=== PATIENT | male | born 1970 | race Caucasian/White ===

== ENCOUNTER 2018-11-20 07:51 | Inpatient (IN) | payer MEDICAID, OTHER ==
[~2018-11-20] VITALS: Ht 160 cm; Wt 58.8 kg
[2018-11-20] VITALS (8 sets, daily range): BP systolic 74–125; BP diastolic 42–75; PULSE 75–95; RESP 15–29; Ht 160 cm; Wt 58.8 kg
[2018-11-20] MEDS ORDERED: SOD CHLORIDE 0.9% 750 ML IV ONE (10:00)
[2018-11-20] MEDS ORDERED: LOPE2CAP PO (10:57)
[2018-11-20] MEDS ORDERED: LANT3I SC (10:58)
[2018-11-20] MEDS ORDERED: INSU100V3 IJ (11:00)
[2018-11-20] MEDS ORDERED: SODIUM CHLORIDE 0.9% 1L BAG IV* STA (11:20)
[2018-11-20] MEDS ORDERED: CEFTRIAXONE 1 GM/50 ML (PMX) 50 ML IVPB STA (11:20)
[2018-11-20] MEDS ORDERED: INSULIN REGULAR, HUMAN 100 UNIT/1 ML 3ML VIAL SC ONE ×2 (11:30→17:00)
[2018-11-20] MEDS ORDERED: NACL 0.9% 3 ML SYG IV SCH (13:00)
[2018-11-20] MEDS ORDERED: ONDANSETRON 4 MG INJ IV PRN (13:00)
[2018-11-20] MEDS: SOD CHLORIDE 0.9% 1,000 ML IV SCH ×3 (13:15→21:58)
--- NOTE | 2018-11-20 14:09 | ERD ---
ER Documentation Chief Complaint Chief Complaint HYPERGLYCEMIA, LEG PAINS, HEADACHE SINCE YESTERDAY HPI Is a 48-year-old male with a history of uncontrolled diabetes who presents with generalized malaise, generalized body aches since yesterday. Patient denies fever, he denies chest pain or shortness of breath he states he has been compliant with his medications, is not sure why his blood sugar got so out of control. He has no recent hospitalizations. ROS All systems reviewed and are negative except as per history of present illness. Medications Home Meds Reported Medications Insulin Regular, Human (Humulin R) 100 Unit/1 Ml Vial, 0 IJ TIDM A for SLIDING SCALE, VIAL INJECT 15 UNITS-QAM, 10 UNITS-NOON, 10 UNITS-QPM 11/20/18 Insulin Glargine* (Lantus*) 100 Unit/Ml Soln, 35 UNIT SC QHS, #1 VIAL 11/20/18 Loperamide Hcl* (Imodium*) 2 Mg Capsule, 2 MG PO BID PRN for DIARRHEA, CAP MAX 16 mg/day 11/20/18 Allergies Allergies: Coded Allergies: No Known Allergy (Unverified , 11/20/18) PMhx/Soc Hx Miscellaneous Medical Probl: Yes (DM. ) Hx Alcohol Use: Yes Hx Substance Use: No Hx Tobacco Use: No Smoking Status: Never smoker Physical Exam Vitals Vital Signs Date Temp Pulse Resp B/P (MAP) Pulse Ox O2 O2 Flow FiO2 Time Delivery Rate 11/20/18 98.3 83 16 135/55 99 Room Air 13:49 (81) 11/20/18 98.3 89 18 151/68 99 07:52 (95) Physical Exam Const: Generally chronically ill-appearing male Head: Atraumatic Eyes: Normal Conjunctiva ENT: Normal External Ears, Nose and Mouth. Neck: Full range of motion. No meningismus. Resp: Clear to auscultation bilaterally, no wheezes rales rhonchi Cardio: Regular rate and rhythm, no murmurs Abd: Soft, non tender, non distended. Normal bowel sounds Skin: No petechiae or rashes Back: No midline or flank tenderness Ext: No cyanosis, or edema. There is no erythema. There is superficial skin tear is noted over the left foot Neur: Awake and alert Psych: Normal Mood and Affect Result Diagram: 11/20/18 1015 11/20/18 1015 Results 24 hrs Laboratory Tests Test 11/20/18 09:53 11/20/18 10:15 11/20/18 10:39 11/20/18 10:43 Blood Gas Blood venous Specimen Source Arterial Blood 11/20/2018 10:12: Date Drawn 10 AM Arterial Blood OTHER Gas Puncture Site Norberto Test N/A Venous Blood pH 7.283 Venous Blood 40.3 mmHG pCO2 (Temp Corrected) Venous Blood pO2 37.0 mmHG (Temp Corrected) Venous Blood 18.6 mmol/L HCO3 Venous Blood 71.1 mmHG Oxygen Saturation Venous Blood -7.5 mmol/L Base Excess Venous Blood 11.1 g/dl Total Hemoglobin Venous Blood 70.7 % Oxyhemoglobin Venous Blood 0.4 % Methemoglobin Blood Gas A-a O2 64.5 mmHg Differential Carboxyhemoglobi 0.1 % n Blood Gas 37.0 C Temperature Blood Gas ROOM AIR Modality FiO2 21.0 % Blood Gas SHERYL Cai Critical Value Read Back Blood Gas [facility] Notified Whom Blood Gas 11/20/2018 10:15: Notified Time 52 AM White Blood 23.0 10^3/ul Count Red Blood Count 3.36 10^6/ul Hemoglobin 9.8 g/dl Hematocrit 27.4 % Mean Corpuscular 81.5 fl Volume Mean Corpuscular 29.2 pg Hemoglobin Mean Corpuscular 35.8 g/dl Hemoglobin Rajni nt Red Cell 12.5 % Distribution Width Platelet Count 266 10^3/UL Mean Platelet 9.8 fl Volume Immature 0.700 % Granulocytes % Neutrophils % 88.8 % Segmented 69 % Neutrophils % (Manual) Band Neutrophils 20 % % (Manual) Lymphocytes % 4.4 % Lymphocytes % 5 % (Manual) Monocytes % 5.8 % Monocytes % 6 % (Manual) Eosinophils % 0.0 % Basophils % 0.3 % Nucleated Red 0.0 /100WBC Blood Cells % Immature 0.160 10^3/ul Granulocytes # Neutrophils # 20.5 10^3/ul Neutrophils # 16.9 10^3/ul (Manual) Band Neutrophils 4.6 10^3/ul # Lymphocytes 1.1 10^3/ul (Manual) Lymphocytes # 1.0 10^3/ul Monocytes # 1.3 10^3/ul Monocytes # 1.3 10^3/ul (Manual) Eosinophils # 0.0 10^3/ul Basophils # 0.1 10^3/ul Nucleated Red 0.0 10^3/ul Blood Cells # Platelet NORMAL Estimate Polychromasia 1+ Poikilocytosis 1+ Anisocytosis 1+ Sodium Level 118 mmol/L Potassium Level 4.3 mmol/L Chloride Level 79 mmol/L Carbon Dioxide 18 mmol/L Level Anion Gap 21 Blood Urea 64 mg/dl Nitrogen Creatinine 3.59 mg/dl Est Glomerular 17 mL/min Filtrat Rate mL/min Glucose Level 666 mg/dl Calcium Level 8.2 mg/dl Phosphorus Level 5.3 mg/dl Magnesium Level 2.4 mg/dl Troponin I < 0.012 ng/ml Albumin 3.5 g/dl Bedside Glucose > 595 mg/dL Urine Color YELLOW Urine Clarity SLIGHTLY CLOUDY Urine pH 5.0 Urine Specific 1.014 [place] Urine Ketones NEGATIVE mg/dL Urine Nitrite NEGATIVE mg/dL Urine Bilirubin NEGATIVE mg/dL Urine NEGATIVE mg/dL Urobilinogen Urine Leukocyte TRACE Jazmyn/ul Esterase Urine 10 /HPF Microscopic RBC Urine 31 /HPF Microscopic WBC Urine Bacteria FEW /HPF Urine Yeast FEW /HPF (Budding) Urine Hemoglobin 3+ mg/dL Urine Glucose 3+ mg/dL Urine Total NEGATIVE mg/dl Protein Test 11/20/18 11:46 11/20/18 11:59 POC Venous 1.4 mmol/L Lactate Bedside Glucose > 595 mg/dL Current Medications Medications Dose Sig/Karey Start Time Status Last (Trade) Ordered Route PRN Stop Time Admin Dose Reason Admin Sodium 750 ml @ ONCE ONCE 11/20/18 DC 11/20/18 Chloride 1,000 mls/hr IV 10:00 11/20/18 10:24 10:44 Sodium 1,500 ml BOLUS OVER 2 11/20/18 DC 11/20/18 Chloride HOURS STAT 11:20 11/20/18 12:03 (NS) IV* 11:27 Ceftriaxone 50 ml @ ONCE STAT 11/20/18 DC 11/20/18 Sodium 100 mls/hr IVPB 11:20 11/20/18 12:05 11:49 Insulin 10 unit ONCE ONCE 11/20/18 DC 11/20/18 Human SC 11:30 11/20/18 12:03 Regular 11:31 (Humulin R) Insulin 35 units QHS SC 11/20/18 UNV Glargine 21:00 (Lantus) Sodium 1,000 ml @ Q10H IV 3/8/19 3/8/19 Chloride 100 mls/hr 12:52 13:15 IV Flush 3 ml PER 11/20/18 (NS 3 ml) PROTOCOL IV 13:00 Ondansetron 4 mg Q6H PRN 11/20/18 HCl (Zofran IV 13:00 Inj) NAUSEA/VOMITI NG 650 mg Q6H PRN 11/20/18 Acetaminophen PO .PAIN 1-3 13:00 (Tylenol OR TEMP Tab) Famotidine 20 mg DAILY PO 11/20/18 (Pepcid) 14:00 Heparin 5,000 unit Q12 SC 11/20/18 Sodium 21:00 (Porcine) (Heparin (5000 Units/1ml)) Cefepime HCl 50 ml @ Q24H IV 11/20/18 100 mls/hr 21:00 Procedures/MDM 48-year-old male presents for generalized malaise and hyperglycemia. His labs are notable for a blood glucose in the 600s, sodium was also 117, corrected this is in the range of 124 and 125. He has no neurologic deficits, there is no indication for hypertonic saline at this time, he has notable leukocytosis of 20, thus CT abdomen pelvis and CT brain were ordered to evaluate for occult infection, this was negative. He had pyuria, and his CT also showed signs concerning for pyelonephritis, thus he was treated with ceftriaxone, and covered empirically for sepsis, I do not feel that the patient is in severe sepsis or septic shock.. Patient will be admitted to telemetry under Dr. Uriostegui EKG: Rate/Rhythm: Normal Sinus Rhythm QRS, ST, T-waves: No changes consistent w/ acute ischemia Impression: No evidence of ischemia or arrhythmia Departure Diagnosis: Primary Impression: Multiple complaints Additional Impressions: Diabetes Diabetes mellitus type: type 2 Diabetes mellitus predatory animal exterminator insulin use: unspecified senior living insulin use status Diabetes mellitus complication status: with unspecified complications Qualified Codes: E11.8 - Type 2 diabetes mellitus with unspecified complications Hyperglycemia Generalized weakness Pyelonephritis Condition: Stable YOJANA SAUCEDO MD Nov 20, 2018 14:09
[2018-11-20] MEDS: FAMOTIDINE 20 MG TAB PO SCH (14:34)
--- NOTE | 2018-11-20 16:13 | HP ---
Date/Time of Note Date/Time of Note DATE: 11/20/18 TIME: 15:59 Assessment/Plan VTE Prophylaxis SCD applied (from Nsg): Yes Pharmacological prophylaxis: LMWH Lines/Catheters IV Catheter Type (from Nrsg): Saline Lock Assessment/Plan Assessment/Plan 1. SIRS secondary to UTI - UA results noted and will start on IV antibiotics - UCx sent - elevated WBC noted - IVF on board 2. LUZ on ?CKD - CT scan of abdomen/pelvis results noted and appears to be a postobstructive cause for LUZ - Will place nagel and consult Urology. If no improvement in renal function, will consult Nephrology for further recommendations 3. Right hydronephrosis with ureter abnl - Most likely contributing to LUZ - Urology consultation placed for further recommendations - Nagel placement ordered 4. Diabetes Mellitus with hyperglycemia - will hydrate and continue on Lantus - Check A1c - ISS and accuchecks 5. hyponatremia - corrected is 123 - most likely secondary to hypovolemia given has not been able to eat in 3 days - continue monitoring 6. Nausea with vomiting - most likely viral gastroenteritis - supportive treatment 7. Chronic diarrhea - will check stool studies - if no acute issues, will resume loperamide 8. Anemia - will check iron levels 9. Diet - carb controlled 10. GI ppx - PPI 11. Disposition - Admit to telemetry for treatment of sepsis secondary to UTI, hyperglycemia, LUZ, and workup Result Diagram: 11/20/18 1015 11/20/18 1015 Results 24hrs Laboratory Tests Test 11/20/18 09:53 11/20/18 10:15 11/20/18 10:39 11/20/18 10:43 Blood Gas Blood venous Specimen Source Arterial Blood 11/20/2018 10:12:1 Date Drawn 0 AM Arterial Blood OTHER Gas Puncture Site Norberto Test N/A Venous Blood pH 7.283 L Venous Blood 40.3 pCO2 (Temp Corrected) Venous Blood pO2 37.0 H (Temp Corrected) Venous Blood 18.6 L HCO3 Venous Blood 71.1 Oxygen Saturation Venous Blood -7.5 L Base Excess Venous Blood 11.1 Total Hemoglobin Venous Blood 70.7 Oxyhemoglobin Venous Blood 0.4 Methemoglobin Blood Gas A-a O2 64.5 Differential Carboxyhemoglobi 0.1 n Blood Gas 37.0 Temperature Blood Gas ROOM AIR Modality FiO2 21.0 Blood Gas SHERYL Cai Critical Value Read Back Blood Gas mda Notified Whom Blood Gas 11/20/2018 10:15:5 Notified Time 2 AM White Blood 23.0 H Count Red Blood Count 3.36 L Hemoglobin 9.8 L Hematocrit 27.4 L Mean Corpuscular 81.5 L Volume Mean Corpuscular 29.2 Hemoglobin Mean Corpuscular 35.8 Hemoglobin Rajni nt Red Cell 12.5 Distribution Width Platelet Count 266 Mean Platelet 9.8 Volume Immature 0.700 H Granulocytes % Neutrophils % 88.8 H Segmented 69 Neutrophils % (Manual) Band Neutrophils 20 H % (Manual) Lymphocytes % 4.4 L Lymphocytes % 5 L (Manual) Monocytes % 5.8 Monocytes % 6 (Manual) Eosinophils % 0.0 Basophils % 0.3 Nucleated Red 0.0 Blood Cells % Immature 0.160 H Granulocytes # Neutrophils # 20.5 H Neutrophils # 16.9 H (Manual) Band Neutrophils 4.6 H # Lymphocytes 1.1 (Manual) Lymphocytes # 1.0 Monocytes # 1.3 H Monocytes # 1.3 H (Manual) Eosinophils # 0.0 Basophils # 0.1 Nucleated Red 0.0 Blood Cells # Platelet NORMAL Estimate Polychromasia 1+ Poikilocytosis 1+ Anisocytosis 1+ Sodium Level 118 *L Potassium Level 4.3 Chloride Level 79 L Carbon Dioxide 18 L Level Anion Gap 21 H Blood Urea 64 H Nitrogen Creatinine 3.59 H Est Glomerular 17 L Filtrat Rate mL/min Glucose Level 666 *H Calcium Level 8.2 L Phosphorus Level 5.3 H Magnesium Level 2.4 Troponin I < 0.012 Albumin 3.5 Bedside Glucose > 595 *H Urine Color YELLOW Urine Clarity SLIGHTLY CLOUDY A Urine pH 5.0 Urine Specific 1.014 [place] Urine Ketones NEGATIVE Urine Nitrite NEGATIVE Urine Bilirubin NEGATIVE Urine NEGATIVE Urobilinogen Urine Leukocyte TRACE A Esterase Urine 10 H Microscopic RBC Urine 31 H Microscopic WBC Urine Bacteria FEW A Urine Yeast FEW A (Budding) Urine Hemoglobin 3+ H Urine Glucose 3+ H Urine Total NEGATIVE Protein Test 11/20/18 11:46 11/20/18 11:59 11/20/18 14:08 POC Venous 1.4 Lactate Bedside Glucose > 595 *H 519 *H HPI/ROS Admit Date/Time Admit Date/Time 11/20/18 1200 Hx of Present Illness 48 yo M with PMH DM and cataracts presented to ED complaining of generalized weakness of lower extremities since yesterday and nausea with vomiting for the past 3 days. Patient states he has been experiencing vomiting with PO intake and denies eating outside food, sick contact, or recent travel. patient denies family members having the same symptoms. He has been taking his Lantus daily despite not having good PO intake and concerned about elevated sugars. Patient also admits to urinary discomfort with burning and poor flow as well as urgency. He has been experiencing diarrhea for the past 6 years with any PO intake with relief when takes Loperamide. Patient was found with elevated glucose in ED in the 600s and UA was positive for UTI. Patient denies any chest pain, shortness of breath, nausea, LOC, dizziness, constipation, or abdominal pain. ROS All 12 systems reviewed and pertinent positives as per HPI. All others negative. Constitutional: fatigue; No chills, No nausea Eyes: No discharge Respiratory: No cough, No shortness of breath, No sputum, No wheezing Cardiovascular: No chest pain, No lightheadedness, No palpitations Gastrointestinal: diarrhea, vomiting; No pain, No constipation, No nausea Genitourinary: dysuria; No discharge Musculoskeletal: other (LE weakness) Skin: No bruising, No laceration Neurologic: No confusion, No focal-weakness, No syncope Endocrine: no complaints Lymphatic: no complaints Psychological: nl mood/affect Immunologic: no complaints PMH/Family/Social Past Medical History Medical History: diabetes, other (cataracts) Medications Current Medications Insulin Glargine (Lantus) 35 units QHS SC ; Start 11/20/18 at 21:00; Status UNV Sodium Chloride 1,000 ml @ 100 mls/hr Q10H IV Last administered on 11/20/18at 13:15; Admin Dose 100 MLS/HR; Start 11/20/18 at 12:52 IV Flush (NS 3 ml) 3 ml PER PROTOCOL IV ; Start 11/20/18 at 13:00 Ondansetron HCl (Zofran Inj) 4 mg Q6H PRN IV NAUSEA/VOMITING; Start 11/20/18 at 13:00 Acetaminophen (Tylenol Tab) 650 mg Q6H PRN PO .PAIN 1-3 OR TEMP; Start 11/20/18 at 13:00 Famotidine (Pepcid) 20 mg DAILY PO Last administered on 11/20/18at 14:34; Admin Dose 20 MG; Start 11/20/18 at 14:00 Heparin Sodium (Porcine) (Heparin (5000 Units/1ml)) 5,000 unit Q12 SC ; Start 11/20/18 at 21:00 Cefepime HCl 50 ml @ 100 mls/hr Q24H IV ; Start 11/20/18 at 21:00 Coded Allergies: No Known Allergy (Unverified , 11/20/18) Past Surgical History Past Surgical Hx: other (skin graft to RLE) Family History Significant Family History: diabetes, hypertension Social History Alcohol Use: none Smoking Status: Never smoker Drug Use: none Exam/Review of Systems Vital Signs Vitals Vital Signs Date Temp Pulse Resp B/P (MAP) Pulse Ox O2 O2 Flow FiO2 Time Delivery Rate 11/20/18 88 17 103/39 100 Room Air 15:47 (60) 11/20/18 98.3 13:49 Exam Exam General: Patient is laying in bed and answers questions. fatigued, no acute distress Head: Normocephalic atraumatic Eyes: EOMI, cataract appreciate in L eye Neck: Supple, nontender, midline Chest: nontender Respiratory: Clear to auscultation bilaterally. no wheezing or rhonchi Cardiovascular: S1, S2, regular rate and rhythm, no obvious murmurs Gastrointestinal: soft, nontender to palpation, nondistended, bowel sounds heard. no rebound or guarding Neurological: Moves all extremities spontaneously. no focal deficits. motor and sensory intact Skin: No new skin lesions Lymph: No nl lymph nodes, No enlarged, No nontender, No other Additional Comments Home medications reviewed PROCEDURE: XR Chest. CLINICAL INDICATION: chest pain TECHNIQUE: Single frontal view of the chest was obtained COMPARISON: None FINDINGS: The heart and mediastinum are within normal limits. The lungs are clear. There is no pleural effusion or pneumothorax. RPTAT: AA IMPRESSION: No acute disease. .Garland March MD, MD Date Time Electronically viewed and signed by .Garland March MD, on 11/20/2018 11:52 PROCEDURE: CT Brain without contrast. CLINICAL INDICATION: Possible sepsis. TECHNIQUE: A CT of the brain without contrast was performed utilizing axial sections from the skull base through the vertex. One or more the following does reduction techniques were utilized: Automated exposure control, adjustment of the mA/ or kV according to patient's size, or use of iterative reconstruction technique. Total exam CTDIvol is 39 MGy and DLP is 634 mGy-cm. DICOM images are available. COMPARISON: None available FINDINGS: The ventricles and sulci are age-appropriate. There is no intracranial hemorrhage, mass effect or midline shift. No abnormal intra-axial or extra- axial fluid collections are seen. The danielle/white matter differentiation is preserved. No acute skull abnormality is noted. The visualized paranasal sinuses are essentially clear. IMPRESSION: 1. No acute intracranial hemorrhage, transcortical infarction or mass effect. Please note MRI with contrast is more sensitive for detection of intracranial infection and can be obtained as clinically warranted. RPTAT: HH .Simin Syed MD, MD Date Time Electronically viewed and signed by .Simin Syed MD, on 11/20/2018 12:51 PROCEDURE: CT Abdomen and Pelvis without contrast. CLINICAL INDICATION: Possible sepsis TECHNIQUE: CT scan of the abdomen and pelvis without contrast was performed on a multi-detector high-resolution CT scanner. The patient was scanned without IV contrast. Coronal and sagittal reformatted images were obtained from the axial source images. DICOM images are available. CTDI equals 6.18 mGy, and DLP equals 357.68 mGy-cm. One or more of the following dose reduction techniques were used: - Automated exposure control. - Adjustment of the mA and/or kV according to patient size. - Use of iterative reconstruction technique. COMPARISON: None. FINDINGS: Lower thorax: Normal. Liver: No suspicious focal mass in this noncontrast study. Biliary: Decompressed and unremarkable. No biliary dilatation. Pancreas: Normal. Spleen: Normal. Adrenal Glands: Normal. Genitourinary: There is mild cortical atrophy of the right kidney. There is moderate hydronephrosis of the right collecting system. There is abnormal course of the urinary tract . The urinary tract turns superiorly at the 1/3 of the proximal ureter for a short length and continues its course inferiorly to the bl adder. The left kidney appears unremarkable. There is significant distension of the bladder without wall thickening or suspicious mass. There is mild right greater than left ureteral distension. Gastrointestinal: Stomach is decompressed. Small and large bowel with normal caliber. Moderate amount of stool is seen within the rectosigmoid colon. No evidence of obstruction. Normal appendix. Lymph nodes: Normal. Vascular: Normal-caliber of the mildly calcified abdominal aorta. Peritoneum/mesentery: No ascites or free air. Reproductive organs: Normal. Musculoskeletal: No suspicious osseous lesion. Abdominal wall: Normal IMPRESSION: 1. Significantly enlarged bladder with no suspicious mass or wall thickening. Bladder outlet obstruction and neurogenic bladder in the differential diagnosis. 2. Moderate right-sided hydronephrosis with mild cortical atrophy suggestive of chronic nature of the hydronephrosis. There is abnormal course of the proximal right ureter with sharp superior turn. There is mild to moderate diffuse right greater than left ureteral dilation. 3. There is no intra-abdominal fluid collection. RPTAT: PP Physician Janae Date Time Electronically viewed and signed by Physician Janae on 11/20/2018 13:19 CÉSAR HYMAN MD Nov 20, 2018 16:09
[2018-11-20] MEDS ORDERED: DEXTROSE 50% 50 ML SYRINGE IV PRN ×2 (18:00)
[2018-11-20] MEDS ORDERED: GLUCOSE GEL 15 GRAM TUBE BUCCAL PRN (18:00)
[2018-11-20] MEDS ORDERED: GLUCOSE GEL 15 GRAM TUBE PO PRN ×2 (18:00)
[2018-11-20] MEDS ORDERED: GLUCAGON 1 MG INJ IM PRN (18:00)
[2018-11-20] MEDS ORDERED: PENDING SANTYL ORDER FOR WOUND CARE XX PRN (18:30)
[2018-11-20] MEDS: ACETAMINOPHEN 325 MG TAB PO PRN (18:37)
[2018-11-20] MEDS: INSULIN ASPART [NOVOLOG] 3 ML PEN SC SCH ×2 (18:42→22:09)
--- NOTE | 2018-11-20 19:55 | CONS ---
Assessment/Plan Assessment/Plan Hospital Course (Demo Recall) 48-year-old male with past medical history of diabetes mellitus for the past 12 years and cataracts presented to ED complaining of generalized weakness of lower extremities since November 19, 2018. He also had nausea and vomiting for the past 3 days. Patient states he has been experiencing vomiting with PO intake and denies eating outside food, sick contact, or recent travel. patient denies family members having the same symptoms. He has been taking his Lantus daily despite not having good PO intake and concerned about elevated sugars. Patient has been having urinary incontinence for over one year. He wets the bed at night and during the day he does have urinary frequency urgency and urgency incontinence. He has been using diapers for over one year. He has been exp eriencing diarrhea for the past 6 years with any PO intake with relief when takes Loperamide. Patient was found with elevated glucose in ED in the 600s and UA was positive for UTI. He underwent a CT scan of the abdomen and pelvis and that showed a very distended urinary bladder with a hydronephrosis and tortuous ureters. The patient does have chronic urinary retention and overflow incontinence. That is why he has been wetting the bed at night for 1 year and also having urinary frequency urgency and urgency incontinence during the day. His prostate is not large and is not the cause for his retention. He most likely has neurogenic diabetic bladder causing his urinary retention and the hydronephrosis is secondary to the urinary retention. He should have the Ling catheter and he should be taught to do self intermittent catheterization. If that could be arranged for him then once his renal function is normal from a urological standpoint he could be discharged either with a Ling catheter or doing self- catheterization. And he should follow-up with [facility] as he has [facility] only for emergency . Consultation Date/Type/Reason Admit Date/Time 11/20/18 1200 Date of Consultation: Nov 20, 2018 Type of Consult Urology Reason for Consultation Urinary retention and hydronephrosis. Requesting Provider: CÉSAR HYMAN MD Date/Time of Note DATE: 11/20/18 TIME: 19:42 Hx of Present Illness 48-year-old male with past medical history of diabetes mellitus for the past 12 years and cataracts presented to ED complaining of generalized weakness of lower extremities since November 19, 2018. He also had nausea and vomiting for the past 3 days. Patient states he has been experiencing vomiting with PO intake and denies eating outside food, sick contact, or recent travel. patient denies family members having the same symptoms. He has been taking his Lantus daily despite not having good PO intake and concerned about elevated sugars. Patient has been having urinary incontinence for over one year. He wets the bed at night and during the day he does have urinary frequency urgency and urgency incontinence. He has been using diapers for over one year. He has been experiencing diarrhea for the past 6 years with any PO intake with relief when takes Loperamide. Patient was found with elevated glucose in ED in the 600s and UA was positive for UTI. He underwent a CT scan of the abdomen and pelvis and that showed a very distended urinary bladder with a hydronephrosis and tortuous ureters. Constitutional: other (Weakness of lower extremities) Eyes: other (He cannot see in the left eye because of cataract) ENT: no complaints Respiratory: No shortness of breath Cardiovascular: no complaints Gastrointestinal: nausea, vomiting Genitourinary: other (Urinary incontinence.) Musculoskeletal: other (Weakness of both lower extremities) Neurologic: focal-weakness (Lower extremities) Endocrine: other (Diabetes) Lymphatic: no complaints Psychological: no complaints Past Medical History Medical History: diabetes, other (cataracts, urinary incontinence and diarrhea) Home Meds Reported Medications Insulin Regular, Human (Humulin R) 100 Unit/1 Ml Vial, 0 IJ TIDM A for SLIDING S KULWANT, VIAL INJECT 15 UNITS-QAM, 10 UNITS-NOON, 10 UNITS-QPM 11/20/18 Insulin Glargine* (Lantus*) 100 Unit/Ml Soln, 35 UNIT SC QHS, #1 VIAL 11/20/18 Loperamide Hcl* (Imodium*) 2 Mg Capsule, 2 MG PO BID PRN for DIARRHEA, CAP MAX 16 mg/day 11/20/18 Medications Current Medications Insulin Glargine (Lantus) 35 units QHS SC ; Start 11/20/18 at 21:00 Sodium Chloride 1,000 ml @ 100 mls/hr Q10H IV Last administered on 11/20/18at 18:18; Admin Dose 100 MLS/HR; Start 11/20/18 at 12:52 IV Flush (NS 3 ml) 3 ml PER PROTOCOL IV ; Start 11/20/18 at 13:00 Ondansetron HCl (Zofran Inj) 4 mg Q6H PRN IV NAUSEA/VOMITING; Start 11/20/18 at 13:00 Acetaminophen (Tylenol Tab) 650 mg Q6H PRN PO .PAIN 1-3 OR TEMP Last administered on 11/20/18at 18:37; Admin Dose 650 MG; Start 11/20/18 at 13:00 Famotidine (Pepcid) 20 mg DAILY PO Last administered on 11/20/18at 14:34; Admin Dose 20 MG; Start 11/20/18 at 14:00 Heparin Sodium (Porcine) (Heparin (5000 Units/1ml)) 5,000 unit Q12 SC ; Start 11/20/18 at 21:00 Cefepime HCl 50 ml @ 100 mls/hr Q24H IV ; Start 11/20/18 at 21:00 Insulin Aspart (Novolog Insulin Pen) NOVOLOG *MILD* ALGORITHM WITH MEALS BEDTIME SC Last administered on 11/20/18at 18:42; Admin Dose 7 UNIT; Start 11/20/18 at 18:30 Miscellaneous Information 1 ea NOTE XX ; Start 11/20/18 at 18:00 Glucose (Glutose) 15 gm Q15M PRN PO DECREASED GLUCOSE; Start 11/20/18 at 18:00 Glucose (Glutose) 22.5 gm Q15M PRN PO DECREASED GLUCOSE; Start 11/20/18 at 18:00 Dextrose (D50w Syringe) 25 ml Q15M PRN IV DECREASED GLUCOSE; Start 11/20/18 at 1 8:00 Dextrose (D50w Syringe) 50 ml Q15M PRN IV DECREASED GLUCOSE; Start 11/20/18 at 18:00 Glucagon (Glucagen) 1 mg Q15M PRN IM DECREASED GLUCOSE; Start 11/20/18 at 18:00 Glucose (Glutose) 15 gm Q15M PRN BUCCAL DECREASED GLUCOSE; Start 11/20/18 at 18:00 Miscellaneous Information (Pending [facility] Order For Wound Care) This patient khan... PRN PRN XX WOUND CARE; Start 11/20/18 at 18:30 Allergies: Coded Allergies: No Known Allergy (Unverified , 11/20/18) Past Surgical History Past Surgical Hx: other (skin graft to RLE) Social History Alcohol Use: none Smoking Status: Never smoker Drug Use: none Other Social History He has 4 children and has not worked for 1 year Exam/Review of Systems Exam Vitals Vital Signs Date Temp Pulse Resp B/P (MAP) Pulse Ox O2 O2 Flow FiO2 Time Delivery Rate 11/20/18 101.0 18:37 11/20/18 95 18 125/56 97 Room Air 17:57 (79) Constitutional: alert, oriented Psych: no complaints Head: normocephalic Eyes: other (Cannot see in the left eye because of cataract) ENMT: nl external ears & nose Neck: supple, non-tender Respiratory: normal air movement; No wheezing Cardiovascular: No jugular venous distention (JVD) Gastrointestinal: soft Genitourinary - Male: other (Patient has balanitis and phimosis, both testes are in the scrotum. Rectal exam: Prostate is soft and not large. He does have also candididiasis in the perineal area) Musculoskeletal: other (Weakness lower extremities) Extremities: No calf tenderness Neurological: focal weakness (Lower extremities) Skin: other (Balanitis and candidiasis in the perineal and perirectal area) Results Result Diagram: 11/20/18 1015 11/20/18 1015 Results 24hrs Laboratory Tests Test 11/20/18 09:53 11/20/18 10:15 11/20/18 10:39 11/20/18 10:43 Blood Gas Blood venous Specimen Source Arterial Blood 11/20/2018 10:12:1 Date Drawn 0 AM Arterial Blood OTHER Gas Puncture Site Norberto Test N/A Venous Blood pH 7.283 L Venous Blood 40.3 pCO2 (Temp Corrected) Venous Blood pO2 37.0 H (Temp Corrected) Venous Blood 18.6 L HCO3 Venous Blood 71.1 Oxygen Saturation Venous Blood -7.5 L Base Excess Venous Blood 11.1 Total Hemoglobin Venous Blood 70.7 Oxyhemoglobin Venous Blood 0.4 Methemoglobin Blood Gas A-a O2 64.5 Differential Carboxyhemoglobi 0.1 n Blood Gas 37.0 Temperature Blood Gas ROOM AIR Modality FiO2 21.0 Blood Gas SHERYL Cai Critical Value Read Back Blood Gas mda Notified Whom Blood Gas 11/20/2018 10:15:5 Notified Time 2 AM White Blood 23.0 H Count Red Blood Count 3.36 L Hemoglobin 9.8 L Hematocrit 27.4 L Mean Corpuscular 81.5 L Volume Mean Corpuscular 29.2 Hemoglobin Mean Corpuscular 35.8 Hemoglobin Rajni nt Red Cell 12.5 Distribution Width Platelet Count 266 Mean Platelet 9.8 Volume Immature 0.700 H Granulocytes % Neutrophils % 88.8 H Segmented 69 Neutrophils % (Manual) Band Neutrophils 20 H % (Manual) Lymphocytes % 4.4 L Lymphocytes % 5 L (Manual) Monocytes % 5.8 Monocytes % 6 (Manual) Eosinophils % 0.0 Basophils % 0.3 Nucleated Red 0.0 Blood Cells % Immature 0.160 H Granulocytes # Neutrophils # 20.5 H Neutrophils # 16.9 H (Manual) Band Neutrophils 4.6 H # Lymphocytes 1.1 (Manual) Lymphocytes # 1.0 Monocytes # 1.3 H Monocytes # 1.3 H (Manual) Eosinophils # 0.0 Basophils # 0.1 Nucleated Red 0.0 Blood Cells # Platelet NORMAL Estimate Polychromasia 1+ Poikilocytosis 1+ Anisocytosis 1+ Sodium Level 118 *L Potassium Level 4.3 Chloride Level 79 L Carbon Dioxide 18 L Level Anion Gap 21 H Blood Urea 64 H Nitrogen Creatinine 3.59 H Est Glomerular 17 L Filtrat Rate mL/min Glucose Level 666 *H Calcium Level 8.2 L Phosphorus Level 5.3 H Magnesium Level 2.4 Troponin I < 0.012 Albumin 3.5 Bedside Glucose > 595 *H Urine Color YELLOW Urine Clarity SLIGHTLY CLOUDY A Urine pH 5.0 Urine Specific 1.014 [place] Urine Ketones NEGATIVE Urine Nitrite NEGATIVE Urine Bilirubin NEGATIVE Urine NEGATIVE Urobilinogen Urine Leukocyte TRACE A Esterase Urine 10 H Microscopic RBC Urine 31 H Microscopic WBC Urine Bacteria FEW A Urine Yeast FEW A (Budding) Urine Hemoglobin 3+ H Urine Glucose 3+ H Urine Total NEGATIVE Protein Test 11/20/18 11:46 11/20/18 11:59 11/20/18 14:08 11/20/18 17:06 POC Venous 1.4 Lactate Bedside Glucose > 595 *H 519 *H 447 *H Test 11/20/18 17:54 11/20/18 18:22 Lactic Acid 1.5 Level Bedside Glucose [address] scan of the abdomen and pelvis: 1. Significantly enlarged bladder with no suspicious mass or wall thickening. Bladder outlet obstruction and neurogenic bladder in the differential diagnosis. 2. Moderate right-sided hydronephrosis with mild cortical atrophy suggestive of chronic nature of the hydronephrosis. There is abnormal course of the proximal right ureter with sharp superior turn. There is mild to moderate diffuse right greater than left ureteral dilation. 3. There is no intra-abdominal fluid collection. Medications Medication Current Medications Insulin Glargine (Lantus) 35 units QHS SC ; Start 11/20/18 at 21:00 Sodium Chloride 1,000 ml @ 100 mls/hr Q10H IV Last administered on 11/20/18at 18:18; Admin Dose 100 MLS/HR; Start 11/20/18 at 12:52 IV Flush (NS 3 ml) 3 ml PER PROTOCOL IV ; Start 11/20/18 at 13:00 Ondansetron HCl (Zofran Inj) 4 mg Q6H PRN IV NAUSEA/VOMITING; Start 11/20/18 at 13:00 Acetaminophen (Tylenol Tab) 650 mg Q6H PRN PO .PAIN 1-3 OR TEMP Last administered on 11/20/18at 18:37; Admin Dose 650 MG; Start 11/20/18 at 13:00 Famotidine (Pepcid) 20 mg DAILY PO Last administered on 11/20/18at 14:34; Admin Dose 20 MG; Start 11/20/18 at 14:00 Heparin Sodium (Porcine) (Heparin (5000 Units/1ml)) 5,000 unit Q12 SC ; Start 11/20/18 at 21:00 Cefepime HCl 50 ml @ 100 mls/hr Q24H IV ; Start 11/20/18 at 21:00 Insulin Aspart (Novolog Insulin Pen) NOVOLOG *MILD* ALGORITHM WITH MEALS BEDTIME SC Last administered on 11/20/18at 18:42; Admin Dose 7 UNIT; Start 11/20/18 at 18:30 Miscellaneous Information 1 ea NOTE XX ; Start 11/20/18 at 18:00 Glucose (Glutose) 15 gm Q15M PRN PO DECREASED GLUCOSE; Start 11/20/18 at 18:00 Glucose (Glutose) 22.5 gm Q15M PRN PO DECREASED GLUCOSE; Start 11/20/18 at 18:00 Dextrose (D50w Syringe) 25 ml Q15M PRN IV DECREASED GLUCOSE; Start 11/20/18 at 18:00 Dextrose (D50w Syringe) 50 ml Q15M PRN IV DECREASED GLUCOSE; Start 11/20/18 at 18:00 Glucagon (Glucagen) 1 mg Q15M PRN IM DECREASED GLUCOSE; Start 11/20/18 at 18:00 Glucose (Glutose) 15 gm Q15M PRN BUCCAL DECREASED GLUCOSE; Start 11/20/18 at 18:00 Miscellaneous Information (Pending [facility] Order For Wound Care) This patient khan... PRN PRN XX WOUND CARE; Start 11/20/18 at 18:30 FLORESITA GUPTA MD Nov 20, 2018 19:52
[2018-11-20] MEDS ORDERED: ALBUMIN HUMAN 25% 100 ML IV ONE ×2 (20:00→21:00)
[2018-11-20] MEDS ORDERED: SOD CHLORIDE 0.9% 1,000 ML IV ONE (20:00)
[2018-11-20] MEDS ORDERED: NORepinephrine 8MG/250 ML (PMX 250 ML IV SCH ×2 (21:00→22:30)
[2018-11-20] MEDS ORDERED: INSULIN GLARGINE [LANTus] (100 UNITS/ML) SYG SC SCH (21:00)
[2018-11-20] MEDS: CEFEPIME 1GM/50 ML (PMX) 50 ML IV SCH (21:26)
[2018-11-20] MEDS: HEPARIN 5,000 UNIT/1 ML VIAL SC SCH (21:56)
[2018-11-21] VITALS (79 sets, daily range): BP systolic 72–131; BP diastolic 41–95; PULSE 81–103; RESP 9–30
[2018-11-21] MEDS ORDERED: LIDOCAINE 1% (MPF) 5 ML VIAL SC ONE (05:00)
[2018-11-21] MEDS: SOD CHLORIDE 0.9% 1,000 ML IV SCH ×2 (06:41→20:07)
[2018-11-21] MEDS ORDERED: INSULIN HUMAN REGULAR 100 UNIT in SOD CHLORIDE 0.9% 99 ML IV SCH (07:00)
[2018-11-21] MEDS: ACCU-CHEK XX SCH ×17 (07:00→23:14)
[2018-11-21] MEDS ORDERED: DEXTROSE 50% 50 ML SYRINGE IV PRN ×2 (07:00)
--- NOTE | 2018-11-21 08:49 | PN ---
Date/Time of Note Date/Time of Note DATE: 11/21/18 TIME: 08:49 Assessment/Plan VTE Prophylaxis Risk score (from Ns)>0 risk: 3 SCD applied (from Ns): Yes Pharmacological prophylaxis: LMWH Lines/Catheters IV Catheter Type (from Nrsg): Peripheral IV Urinary Cath still in place: Yes Reason Cath still needed: urinary retention Assessment/Plan Assessment/Plan 1. Septic shock secondary to UTI - requiring pressor support this am and will wean to maintain MAP >65 - WBC elevated and will continue on IV antibiotics - Urine cx showing no growth - continue IVF 2. LUZ on ?CKD - Cr improving after nagel placed and will continue monitoring for improvement. - CT scan of abdomen/pelvis results noted and appears to be a postobstructive cause for LUZ 3. Right hydronephrosis with ureter abnl - Urology on board and appreciate recommendations. Nagel in place and discussed with patient he will need outpatient follow up and continued nagel use vs straig ht cath at home - Most likely contributing to LUZ 4. Diabetes Mellitus with hyperglycemia - A1c noted - Insulin drip started since sugar persistently high - DM education consultation placed 5. hyponatremia- resolved - continue monitoring 6. Nausea with vomiting- resolved - most likely viral gastroenteritis - supportive treatment 7. Chronic diarrhea - will check stool studies - if no acute issues, will resume loperamide 8. iron deficiency anemia - IV iron 9. Disposition - Will continue monitoring in ICU while requiring pressor support. Result Diagram: 11/21/18 0517 11/21/18 0517 Results 24hrs Laboratory Tests Test 11/20/18 09:53 11/20/18 10:15 11/20/18 10:39 11/20/18 10:43 Blood Gas Blood venous Specimen Source Arterial Blood 11/20/2018 10:12:1 Date Drawn 0 AM Arterial Blood OTHER Gas Puncture Site Norberto Test N/A Venous Blood pH 7.283 L Venous Blood 40.3 pCO2 (Temp Corrected) Venous Blood pO2 37.0 H (Temp Corrected) Venous Blood 18.6 L HCO3 Venous Blood 71.1 Oxygen Saturation Venous Blood -7.5 L Base Excess Venous Blood 11.1 Total Hemoglobin Venous Blood 70.7 Oxyhemoglobin Venous Blood 0.4 Methemoglobin Blood Gas A-a O2 64.5 Differential Carboxyhemoglobi 0.1 n Blood Gas 37.0 Temperature Blood Gas ROOM AIR Modality FiO2 21.0 Blood Gas SHERYL Cai Critical Value Read Back Blood Gas mda Notified Whom Blood Gas 11/20/2018 10:15:5 Notified Time 2 AM White Blood 23.0 H Count Red Blood Count 3.36 L Hemoglobin 9.8 L Hematocrit 27.4 L Mean Corpuscular 81.5 L Volume Mean Corpuscular 29.2 Hemoglobin Mean Corpuscular 35.8 Hemoglobin Rajni nt Red Cell 12.5 Distribution Width Platelet Count 266 Mean Platelet 9.8 Volume Immature 0.700 H Granulocytes % Neutrophils % 88.8 H Segmented 69 Neutrophils % (Manual) Band Neutrophils 20 H % (Manual) Lymphocytes % 4.4 L Lymphocytes % 5 L (Manual) Monocytes % 5.8 Monocytes % 6 (Manual) Eosinophils % 0.0 Basophils % 0.3 Nucleated Red 0.0 Blood Cells % Immature 0.160 H Granulocytes # Neutrophils # 20.5 H Neutrophils # 16.9 H (Manual) Band Neutrophils 4.6 H # Lymphocytes 1.1 (Manual) Lymphocytes # 1.0 Monocytes # 1.3 H Monocytes # 1.3 H (Manual) Eosinophils # 0.0 Basophils # 0.1 Nucleated Red 0.0 Blood Cells # Platelet NORMAL Estimate Polychromasia 1+ Poikilocytosis 1+ Anisocytosis 1+ Sodium Level 118 *L Potassium Level 4.3 Chloride Level 79 L Carbon Dioxide 18 L Level Anion Gap 21 H Blood Urea 64 H Nitrogen Creatinine 3.59 H Est Glomerular 17 L Filtrat Rate mL/min Glucose Level 666 *H Calcium Level 8.2 L Phosphorus Level 5.3 H Magnesium Level 2.4 Troponin I < 0.012 Albumin 3.5 Bedside Glucose > 595 *H Urine Color YELLOW Urine Clarity SLIGHTLY CLOUDY A Urine pH 5.0 Urine Specific 1.014 [place] Urine Ketones NEGATIVE Urine Nitrite NEGATIVE Urine Bilirubin NEGATIVE Urine NEGATIVE Urobilinogen Urine Leukocyte TRACE A Esterase Urine 10 H Microscopic RBC Urine 31 H Microscopic WBC Urine Bacteria FEW A Urine Yeast FEW A (Budding) Urine Hemoglobin 3+ H Urine Glucose 3+ H Urine Total NEGATIVE Protein Test 11/20/18 11:46 11/20/18 11:59 11/20/18 14:08 11/20/18 17:06 POC Venous 1.4 Lactate Bedside Glucose > 595 *H 519 *H 447 *H Test 11/20/18 17:54 11/20/18 18:22 11/20/18 20:35 11/20/18 21:46 Lactic Acid 1.5 1.2 Level Bedside Glucose 392 H 312 H Test 11/20/18 21:55 11/21/18 05:17 Bedside Glucose 259 H White Blood 27.2 H Count Red Blood Count 3.32 L Hemoglobin 9.5 L Hematocrit 27.7 L Mean Corpuscular 83.4 Volume Mean Corpuscular 28.6 L Hemoglobin Mean Corpuscular 34.3 Hemoglobin Rajni nt Red Cell 12.9 Distribution Width Platelet Count 278 Mean Platelet 10.0 Volume Immature 0.600 H Granulocytes % Neutrophils % Segmented 79 H Neutrophils % (Manual) Band Neutrophils 9 H % (Manual) Lymphocytes % Lymphocytes % 6 L (Manual) Monocytes % Monocytes % 6 (Manual) Eosinophils % Basophils % Nucleated Red 0.0 Blood Cells % Immature 0.150 H Granulocytes # Neutrophils # Neutrophils # 22.1 H (Manual) Band Neutrophils 2.4 H # Lymphocytes 1.6 (Manual) Lymphocytes # Monocytes # Monocytes # 1.6 H (Manual) Eosinophils # Basophils # Nucleated Red Blood Cells # Platelet NORMAL Estimate Poikilocytosis 1+ Sodium Level 135 # Potassium Level 3.3 L Chloride Level 103 # Carbon Dioxide 13 L Level Anion Gap 19 H Blood Urea 46 #H Nitrogen Creatinine 2.69 H Est Glomerular 26 L Filtrat Rate mL/min Glucose Level 304 #H Hemoglobin A1c Calcium Level 7.8 L Magnesium Level 2.3 Iron Level 12 L Total Iron 246 Binding Capacity Percent Iron 5 L Saturation Total Bilirubin 0.1 L Direct Bilirubin 0.00 Indirect 0.1 Bilirubin Aspartate Amino 42 Transf (AST/SGOT ) Alanine 19 Aminotransferase (ALT/SGPT) Alkaline 256 H Phosphatase Total Protein 6.9 Albumin 3.4 Globulin 3.50 H Albumin/Globulin 0.97 Ratio Subjective 24 Hr Interval Summary Free Text/Dictation Patient states he's feeling better but still concerned about the weakness in lower extremities and elevated glucose levels. BP was running low and patient was transferred to ICU for pressor support. Exam/Review of Systems Exam Vitals Vital Signs Date Temp Pulse Resp B/P (MAP) Pulse Ox O2 O2 Flow FiO2 Time Delivery Rate 11/21/18 89 12 101/59 100 06:45 (73) 11/21/18 Nasal 2.0 06:00 Cannula 11/21/18 98.4 00:00 Intake and Output 11/20/18 11/20/18 11/21/18 1515:00 23:00 07:00 IntakeIntake Total 2500 ml 300 ml 858.39 ml OutputOutput Total 1800 ml 890 ml BalanceBalance 2500 ml -1500 ml -31.61 ml Exam General: Patient is laying in bed and answers questions. fatigued, no acute distress Eyes: EOMI, cataract appreciate in L eye Chest: nontender Respiratory: Clear to auscultation bilaterally. no wheezing or rhonchi Cardiovascular: S1, S2, regular rate and rhythm, no obvious murmurs Gastrointestinal: soft, nontender to palpation, nondistended, bowel sounds heard. no rebound or guarding Neurological: Moves all extremities spontaneously. no focal deficits. motor and sensory intact Skin: No new skin lesions Results Results 24hrs Laboratory Tests Test 11/20/18 09:53 11/20/18 10:15 11/20/18 10:39 11/20/18 10:43 Blood Gas Blood venous Specimen Source Arterial Blood 11/20/2018 10:12:1 Date Drawn 0 AM Arterial Blood OTHER Gas Puncture Site Norberto Test N/A Venous Blood pH 7.283 L Venous Blood 40.3 pCO2 (Temp Corrected) Venous Blood pO2 37.0 H (Temp Corrected) Venous Blood 18.6 L HCO3 Venous Blood 71.1 Oxygen Saturation Venous Blood -7.5 L Base Excess Venous Blood 11.1 Total Hemoglobin Venous Blood 70.7 Oxyhemoglobin Venous Blood 0.4 Methemoglobin Blood Gas A-a O2 64.5 Differential Carboxyhemoglobi 0.1 n Blood Gas 37.0 Temperature Blood Gas ROOM AIR Modality FiO2 21.0 Blood Gas SHERYL Cai Critical Value Read Back Blood Gas [facility] Notified Whom Blood Gas 11/20/2018 10:15:5 Notified Time 2 AM White Blood 23.0 H Count Red Blood Count 3.36 L Hemoglobin 9.8 L Hematocrit 27.4 L Mean Corpuscular 81.5 L Volume Mean Corpuscular 29.2 Hemoglobin Mean Corpuscular 35.8 Hemoglobin Rajni nt Red Cell 12.5 Distribution Width Platelet Count 266 Mean Platelet 9.8 Volume Immature 0.700 H Granulocytes % Neutrophils % 88.8 H Segmented 69 Neutrophils % (Manual) Band Neutrophils 20 H % (Manual) Lymphocytes % 4.4 L Lymphocytes % 5 L (Manual) Monocytes % 5.8 Monocytes % 6 (Manual) Eosinophils % 0.0 Basophils % 0.3 Nucleated Red 0.0 Blood Cells % Immature 0.160 H Granulocytes # Neutrophils # 20.5 H Neutrophils # 16.9 H (Manual) Band Neutrophils 4.6 H # Lymphocytes 1.1 (Manual) Lymphocytes # 1.0 Monocytes # 1.3 H Monocytes # 1.3 H (Manual) Eosinophils # 0.0 Basophils # 0.1 Nucleated Red 0.0 Blood Cells # Platelet NORMAL Estimate Polychromasia 1+ Poikilocytosis 1+ Anisocytosis 1+ Sodium Level 118 *L Potassium Level 4.3 Chloride Level 79 L Carbon Dioxide 18 L Level Anion Gap 21 H Blood Urea 64 H Nitrogen Creatinine 3.59 H Est Glomerular 17 L Filtrat Rate mL/min Glucose Level 666 *H Calcium Level 8.2 L Phosphorus Level 5.3 H Magnesium Level 2.4 Troponin I < 0.012 Albumin 3.5 Bedside Glucose > 595 *H Urine Color YELLOW Urine Clarity SLIGHTLY CLOUDY A Urine pH 5.0 Urine Specific 1.014 [place] Urine Ketones NEGATIVE Urine Nitrite NEGATIVE Urine Bilirubin NEGATIVE Urine NEGATIVE Urobilinogen Urine Leukocyte TRACE A Esterase Urine 10 H Microscopic RBC Urine 31 H Microscopic WBC Urine Bacteria FEW A Urine Yeast FEW A (Budding) Urine Hemoglobin 3+ H Urine Glucose 3+ H Urine Total NEGATIVE Protein Test 11/20/18 11:46 11/20/18 11:59 11/20/18 14:08 11/20/18 17:06 POC Venous 1.4 Lactate Bedside Glucose > 595 *H 519 *H 447 *H Test 11/20/18 17:54 11/20/18 18:22 11/20/18 20:35 11/20/18 21:46 Lactic Acid 1.5 1.2 Level Bedside Glucose 392 H 312 H Test 11/20/18 21:55 11/21/18 05:17 Bedside Glucose 259 H White Blood 27.2 H Count Red Blood Count 3.32 L Hemoglobin 9.5 L Hematocrit 27.7 L Mean Corpuscular 83.4 Volume Mean Corpuscular 28.6 L Hemoglobin Mean Corpuscular 34.3 Hemoglobin Rajni nt Red Cell 12.9 Distribution Width Platelet Count 278 Mean Platelet 10.0 Volume Immature 0.600 H Granulocytes % Neutrophils % Segmented 79 H Neutrophils % (Manual) Band Neutrophils 9 H % (Manual) Lymphocytes % Lymphocytes % 6 L (Manual) Monocytes % Monocytes % 6 (Manual) Eosinophils % Basophils % Nucleated Red 0.0 Blood Cells % Immature 0.150 H Granulocytes # Neutrophils # Neutrophils # 22.1 H (Manual) Band Neutrophils 2.4 H # Lymphocytes 1.6 (Manual) Lymphocytes # Monocytes # Monocytes # 1.6 H (Manual) Eosinophils # Basophils # Nucleated Red Blood Cells # Platelet NORMAL Estimate Poikilocytosis 1+ Sodium Level 135 # Potassium Level 3.3 L Chloride Level 103 # Carbon Dioxide 13 L Level Anion Gap 19 H Blood Urea 46 #H Nitrogen Creatinine 2.69 H Est Glomerular 26 L Filtrat Rate mL/min Glucose Level 304 #H Hemoglobin A1c Calcium Level 7.8 L Magnesium Level 2.3 Iron Level 12 L Total Iron 246 Binding Capacity Percent Iron 5 L Saturation Total Bilirubin 0.1 L Direct Bilirubin 0.00 Indirect 0.1 Bilirubin Aspartate Amino 42 Transf (AST/SGOT ) Alanine 19 Aminotransferase (ALT/SGPT) Alkaline 256 H Phosphatase Total Protein 6.9 Albumin 3.4 Globulin 3.50 H Albumin/Globulin 0.97 Ratio Medications Medication Current Medications Sodium Chloride 1,000 ml @ 100 mls/hr Q10H IV Last administered on 11/21/18 06:41; Admin Dose 100 MLS/HR; Start 11/20/18 at 12:52 IV Flush (NS 3 ml) 3 ml PER PROTOCOL IV ; Start 11/20/18 at 13:00 Ondansetron HCl (Zofran Inj) 4 mg Q6H PRN IV NAUSEA/VOMITING; Start 11/20/18 at 13:00 Acetaminophen (Tylenol Tab) 650 mg Q6H PRN PO .PAIN 1-3 OR TEMP Last administered on 11/20/18 18:37; Admin Dose 650 MG; Start 11/20/18 at 13:00 Famotidine (Pepcid) 20 mg DAILY PO Last administered on 11/20/18 14:34; Admin Dose 20 MG; Start 11/20/18 at 14:00 Heparin Sodium (Porcine) (Heparin (5000 Units/1ml)) 5,000 unit Q12 SC Last administered on 11/20/18 21:56; Admin Dose 5,000 UNIT; Start 11/20/18 at 21:00 Cefepime HCl 50 ml @ 100 mls/hr Q24H IV Last administered on 11/20/18 21:26; Admin Dose 100 MLS/HR; Start 11/20/18 at 21:00 Miscellaneous Information 1 ea NOTE XX ; Start 11/20/18 at 18:00 Miscellaneous Information (Pending [facility] Order For Wound Care) This patient khan... PRN PRN XX WOUND CARE; Start 11/20/18 at 18:30 Norepinephrine 250 ml @ 1.875 mls/ hr TITRATE IV Last administered on 11/20/18at 23:15; Admin Dose 3.75 MLS/HR; Start 11/20/18 at 22:30 Potassium Chloride 100 ml @ 50 mls/hr Q2H IVPB ; Start 11/21/18 at 07:00; Stop 11/21/18 at 10:59 Diagnostic Test (Pha) (Accu-Chek) 1 ea Q1H XX ; Start 11/21/18 at 07:00 Insulin Human Regular 100 unit/ Sodium Chloride 100 ml @ 0 mls/hr PER PROTOCOL IV ; Start 11/21/18 at 07:00 Miscellaneous Information (* Miscellaneous Pharmacy Order) Treatment of Hypoglycemia: 1.BG 51... Per protocol XX ; Start 11/21/18 at 07:00 Dextrose (D50w Syringe) 25 ml Q15M PRN IV .DECREASED GLUCOSE; Start 11/21/18 at 07:00 Dextrose (D50w Syringe) 50 ml Q15M PRN IV .DECREASED GLUCOSE; Start 11/21/18 at 07:00 Potassium Chloride 100 ml @ 50 mls/hr Q2H IVPB ; Start 11/21/18 at 09:00; Stop 11/21/18 at 12:59; Status UNV Nystatin (Nystatin Oint) 1 applic TID TOP ; Start 11/21/18 at 09:00; Status UNV CÉSAR HYMAN MD Nov 21, 2018 08:49
[2018-11-21] MEDS ORDERED: POTASSIUM CHLORIDE 100 ML IVPB SCH (09:00)
[2018-11-21] MEDS: FAMOTIDINE 20 MG TAB PO SCH (09:06)
[2018-11-21] MEDS: POTASSIUM CHLORIDE 100 ML IVPB SCH ×2 (09:10→13:03)
[2018-11-21] MEDS: HEPARIN 5,000 UNIT/1 ML VIAL SC SCH ×2 (09:13→20:21)
[2018-11-21] MEDS: NYSTATIN 15 GM OINT TOP SCH ×3 (10:18→20:07)
[2018-11-21] MEDS: SOD FERRIC GLUC COMPLX 125 MG in SOD CHLORIDE 0.9% 100 ML IVPB SCH (13:04)
--- NOTE | 2018-11-21 18:33 | CONS ---
Consult Date/Type/Reason Admit Date/Time Nov 20, 2018 at 11:56 Initial Consult Date 11/20/18 Type of Consultation: Urology Reason for Consultation Urinary retention Requesting Provider: CÉSAR HYMAN MD Date/Time of Note DATE: 11/21/18 TIME: 18:30 Subjective Patient is in the intensive care unit. He states that he is feeling better. Objective Vitals Vital Signs Date Temp Pulse Resp B/P (MAP) Pulse Ox O2 O2 Flow FiO2 Time Delivery Rate 11/21/18 91 15 103/76 98 18:15 (85) 11/21/18 Room Air 18:00 11/21/18 97.9 16:00 11/21/18 2.0 06:00 Intake and Output 11/20/18 11/20/18 11/21/18 1515:00 23:00 07:00 IntakeIntake Total 2500 ml 300 ml 959.39 ml OutputOutput Total 1800 ml 990 ml BalanceBalance 2500 ml -1500 ml -30.61 ml Exam Abdomen is soft. The Ling catheter is draining clear urine. Urine output is 500 mL in the past 12 hours. Results/Medications Result Diagram: 11/21/18 0517 11/21/18 0517 Results 24 hrs Laboratory Tests Test 11/20/18 20:35 11/20/18 21:46 11/20/18 21:55 11/21/18 05:17 Bedside Glucose 312 H 259 H Lactic Acid Level 1.2 White Blood Count 27.2 H Red Blood Count 3.32 L Hemoglobin 9.5 L Hematocrit 27.7 L Mean Corpuscular Volume 83.4 Mean Corpuscular 28.6 L Hemoglobin Mean Corpuscular 34.3 Hemoglobin Concent Red Cell Distribution 12.9 Width Platelet Count 278 Mean Platelet Volume 10.0 Immature Granulocytes % 0.600 H Neutrophils % Segmented Neutrophils 79 H % (Manual) Band Neutrophils % 9 H (Manual) Lymphocytes % Lymphocytes % (Manual) 6 L Monocytes % Monocytes % (Manual) 6 Eosinophils % Basophils % Nucleated Red Blood 0.0 Cells % Immature Granulocytes # 0.150 H Neutrophils # Neutrophils # (Manual) 22.1 H Band Neutrophils # 2.4 H Lymphocytes (Manual) 1.6 Lymphocytes # Monocytes # Monocytes # (Manual) 1.6 H Eosinophils # Basophils # Nucleated Red Blood Cells # Platelet Estimate NORMAL Poikilocytosis 1+ Sodium Level 135 # Potassium Level 3.3 L Chloride Level 103 # Carbon Dioxide Level 13 L Anion Gap 19 H Blood Urea Nitrogen 46 #H Creatinine 2.69 H Est Glomerular Filtrat 26 L Rate mL/min Glucose Level 304 #H Hemoglobin A1c Calcium Level 7.8 L Magnesium Level 2.3 Iron Level 12 L Total Iron Binding 246 Capacity Percent Iron Saturation 5 L Total Bilirubin 0.1 L Direct Bilirubin 0.00 Indirect Bilirubin 0.1 Aspartate Amino 42 Transf (AST/SGOT) Alanine 19 Aminotransferase (ALT/SG PT) Alkaline Phosphatase 256 H Total Protein 6.9 Albumin 3.4 Globulin 3.50 H Albumin/Globulin Ratio 0.97 Test 11/21/18 09:05 11/21/18 10:14 11/21/18 11:10 11/21/18 11:53 Bedside Glucose 381 H 317 H 378 H 312 H Test 11/21/18 12:58 11/21/18 14:25 11/21/18 15:35 11/21/18 16:33 Bedside Glucose 293 H 182 130 103 Test 11/21/18 17:20 Bedside Glucose 136 Home Meds Reported Medications Insulin Regular, Human (Humulin R) 100 Unit/1 Ml Vial, 0 IJ TIDM A for SLIDING SCALE, VIAL INJECT 15 UNITS-QAM, 10 UNITS-NOON, 10 UNITS-QPM 11/20/18 Insulin Glargine* (Lantus*) 100 Unit/Ml Soln, 35 UNIT SC QHS, #1 VIAL 11/20/18 Loperamide Hcl* (Imodium*) 2 Mg Capsule, 2 MG PO BID PRN for DIARRHEA, CAP MAX 16 mg/day 11/20/18 Medications Current Medications Sodium Chloride 1,000 ml @ 100 mls/hr Q10H IV Last administered on 11/21/18at 06:41; Admin Dose 100 MLS/HR; Start 11/20/18 at 12:52 IV Flush (NS 3 ml) 3 ml PER PROTOCOL IV ; Start 11/20/18 at 13:00 Ondansetron HCl (Zofran Inj) 4 mg Q6H PRN IV NAUSEA/VOMITING Last administered on 11/21/18at 09:06; Admin Dose 4 MG; Start 11/20/18 at 13:00 Acetaminophen (Tylenol Tab) 650 mg Q6H PRN PO .PAIN 1-3 OR TEMP Last administered on 11/20/18 18:37; Admin Dose 650 MG; Start 11/20/18 at 13:00 Famotidine (Pepcid) 20 mg DAILY PO Last administered on 11/21/18 09:06; Admin Dose 20 MG; Start 11/20/18 at 14:00 Heparin Sodium (Porcine) (Heparin (5000 Units/1ml)) 5,000 unit Q12 SC Last administered on 11/21/18 09:13; Admin Dose 5,000 UNIT; Start 11/20/18 at 21:00 Cefepime HCl 50 ml @ 100 mls/hr Q24H IV Last administered on 11/20/18 21:26; Admin Dose 100 MLS/HR; Start 11/20/18 at 21:00 Miscellaneous Information 1 ea NOTE XX ; Start 11/20/18 at 18:00 Miscellaneous Information (Pending [facility] Order For Wound Care) This patient khan... PRN PRN XX WOUND CARE; Start 11/20/18 at 18:30 Norepinephrine 250 ml @ 1.875 mls/ hr TITRATE IV Last administered on 11/20/18 23:15; Admin Dose 3.75 MLS/HR; Start 11/20/18 at 22:30 Diagnostic Test (Pha) (Accu-Chek) 1 ea Q1H XX Last administered on 11/21/18 18:00; Admin Dose 1 EA; Start 11/21/18 at 07:00 Insulin Human Regular 100 unit/ Sodium Chloride 100 ml @ 0 mls/hr PER PROTOCOL IV Last administered on 11/21/18 09:17; Admin Dose 0 MLS/HR; Start 11/21/18 at 07:00 Miscellaneous Information (* Miscellaneous Pharmacy Order) Treatment of Hypoglycemia: 1.BG 51... Per protocol XX ; Start 11/21/18 at 07:00 Dextrose (D50w Syringe) 25 ml Q15M PRN IV .DECREASED GLUCOSE; Start 11/21/18 at 07:00 Dextrose (D50w Syringe) 50 ml Q15M PRN IV .DECREASED GLUCOSE; Start 11/21/18 at 07:00 Nystatin (Nystatin Oint) 1 applic TID TOP Last administered on 11/21/18 13:04; Admin Dose 1 APPLIC; Start 11/21/18 at 09:00 Ferric Sodium Gluconate Complex 125 mg/Sodium Chloride 110 ml @ 110 mls/hr DAILY@1300 IVPB Last administered on 11/21/18at 13:04; Admin Dose 110 MLS/HR; Start 11/21/18 at 13:00; Stop 11/25/18 at 13:59 Assessment/Plan Hospital Course (Demo Recall) 48-year-old male with past medical history of diabetes mellitus for the past 12 years and cataracts presented to ED complaining of generalized weakness of lower extremities since November 19, 2018. He also had nausea and vomiting for the past 3 days. Patient states he has been experiencing vomiting with PO intake and denies eating outside food, sick contact, or recent travel. patient denies family members having the same symptoms. He has been taking his Lantus daily despite not having good PO intake and concerned about elevated sugars. Patient has been having urinary incontinence for over one year. He wets the bed at night and during the day he does have urinary frequency urgency and urgency incontinence. He has been using diapers for over one year. He has been experiencing diarrhea for the past 6 years with any PO intake with relief when takes Loperamide. Patient was found with elevated glucose in ED in the 600s and UA was positive for UTI. He underwent a CT scan of the abdomen and pelvis and that showed a very distended urinary bladder with a hydronephrosis and tortuous ureters. The patient does have chronic urinary retention and overflow incontinence. That is why he has been wetting the bed at night for 1 year and also having urinary frequency urgency and urgency incontinence during the day. His prostate is not large and is not the cause for his retention. He most likely has neurogenic diabetic bladder causing his urinary retention and the hydronephrosis is secondary to the urinary retention. He should have the Ling catheter and he should be taught to do self intermittent catheterization. His renal function has improved. The creatinine is down to 2.69. Plan is to keep the Ling ca theter in and hydrate him. The urine culture showed no growth so far. He is on cefepime. Continue same treatment. FLORESITA GUPTA MD Nov 21, 2018 18:33
[2018-11-21] MEDS: CEFEPIME 1GM/50 ML (PMX) 50 ML IV SCH (20:06)
[2018-11-22] VITALS (19 sets, daily range): BP systolic 94–122; BP diastolic 60–83; PULSE 77–92; RESP 11–26
[2018-11-22] MEDS: ACCU-CHEK XX SCH ×15 (01:17→15:34)
[2018-11-22] MEDS: SOD CHLORIDE 0.9% 1,000 ML IV SCH ×2 (06:43→18:32)
[2018-11-22] MEDS: FAMOTIDINE 20 MG TAB PO SCH (08:16)
[2018-11-22] MEDS: NYSTATIN 15 GM OINT TOP SCH ×3 (08:16→21:07)
[2018-11-22] MEDS: HEPARIN 5,000 UNIT/1 ML VIAL SC SCH ×2 (08:20→21:06)
[2018-11-22] MEDS ORDERED: POTASSIUM CHLORIDE (SR) 20 MEQ TAB PO STA (08:45)
--- NOTE | 2018-11-22 08:48 | PN ---
Date/Time of Note Date/Time of Note DATE: 11/22/18 TIME: 08:48 Assessment/Plan VTE Prophylaxis Risk score (from Nsg)>0 risk: 7 SCD applied (from Nsg): Yes Pharmacological prophylaxis: LMWH Lines/Catheters IV Catheter Type (from Nrsg): PICC Line Central line still needed: Yes Urinary Cath still in place: Yes Reason Cath still needed: urinary retention Assessment/Plan Assessment/Plan 1. Septic shock secondary to UTI - off pressor support and doing well - WBC trending downward - Urine cx showing no growth - continue IVF 2. LUZ on ?CKD- improving - Cr continues to improve daily and will hold off on Nephrology consultation given appears postobstructive etiology and improvement after nagel placed - CT scan of abdomen/pelvis results noted 3. Right hydronephrosis with ureter abnl - Urology on board and appreciate recommendations. Nagel in place and discussed with patient he will need outpatient follow up and continued nagel use vs straight cath at home - Most likely contributing to LUZ 4. Diabetes Mellitus with hyperglycemia - A1c noted - will wean off insulin and transition to SC as tolerated - ISS and accuchecks - DM education consultation placed 5. LE weakness - PT/OT consulted 6. Nausea with vomiting- resolved - most likely viral gastroenteritis - supportive treatment 7. Chronic diarrhea - resume home loperamide 8. iron deficiency anemia - IV iron and will start PO 9. Disposition - Once transition to Insulin SC will downgrade to med/surg for continued monitoring of Renal function - pending PT/OT evaluation Result Diagram: 11/22/18 0432 11/22/18 0432 Results 24hrs Laboratory Tests Test 11/21/18 09:05 11/21/18 10:14 11/21/18 11:10 11/21/18 11:53 Bedside Glucose 381 H 317 H 378 H 312 H Test 11/21/18 12:58 11/21/18 14:25 11/21/18 15:35 11/21/18 16:33 Bedside Glucose 293 H 182 130 103 Test 11/21/18 17:20 11/21/18 19:33 11/21/18 21:12 11/21/18 23:12 Bedside Glucose 136 117 116 115 Test 11/22/18 00:47 11/22/18 03:06 11/22/18 04:32 11/22/18 05:03 Bedside Glucose 113 106 111 White Blood Count 17.4 #H Red Blood Count 2.58 #L Hemoglobin 7.5 #L Hematocrit 21.3 #L Mean Corpuscular 82.6 Volume Mean Corpuscular 29.1 Hemoglobin Mean Corpuscular 35.2 Hemoglobin Concent Red Cell 13.3 Distribution Width Platelet Count 240 Mean Platelet Volume 10.1 Immature 1.000 H Granulocytes % Neutrophils % 83.0 H Lymphocytes % 6.2 L Monocytes % 9.3 Eosinophils % 0.2 Basophils % 0.3 Nucleated Red Blood 0.0 Cells % Immature 0.180 H Granulocytes # Neutrophils # 14.5 H Lymphocytes # 1.1 Monocytes # 1.6 H Eosinophils # 0.0 Basophils # 0.1 Nucleated Red Blood 0.0 Cells # Sodium Level 137 Potassium Level 3.0 L Chloride Level 108 Carbon Dioxide Level 18 L Anion Gap 11 # Blood Urea Nitrogen 29 #H Creatinine 1.76 H Est Glomerular 42 L Filtrat Rate mL/min Glucose Level 112 # Calcium Level 7.9 L Magnesium Level 2.3 Total Bilirubin 0.2 Direct Bilirubin 0.00 Indirect Bilirubin 0.2 Aspartate Amino 55 H Transf (AST/SGOT) Alanine 33 Aminotransferase (AL T/SGPT) Alkaline Phosphatase 449 #H Total Protein 6.2 Albumin 2.9 L Globulin 3.30 H Albumin/Globulin 0.87 Ratio Test 11/22/18 07:03 Bedside Glucose 104 Subjective 24 Hr Interval Summary Free Text/Dictation Patient remains off pressor support and being weaned off insulin drip this am. Complaining of discomfort around penile head and requesting antifungal since has balantis and improved discomfort in past. Exam/Review of Systems Exam Vitals Vital Signs Date Temp Pulse Resp B/P (MAP) Pulse Ox O2 O2 Flow FiO2 Time Delivery Rate 11/22/18 98.4 80 13 104/70 97 Room Air 08:00 (81) 11/21/18 2.0 06:00 Intake and Output 11/21/18 11/21/18 11/22/18 1515:00 23:00 07:00 IntakeIntake Total 1758.5 ml 879.0 ml 1306.0 ml OutputOutput Total 1260 ml 1295 ml 880 ml BalanceBalance 498.5 ml -416.0 ml 426.0 ml Exam General: Patient is laying in bed and answers questions. fatigued, no acute distress Eyes: EOMI, cataract appreciate in L eye Chest: nontender Respiratory: Clear to auscultation bilaterally. no wheezing or rhonchi Cardiovascular: S1, S2, regular rate and rhythm, no obvious murmurs Gastrointestinal: soft, nontender to palpation, nondistended, bowel sounds heard. no rebound or guarding Neurological: Moves all extremities spontaneously. no focal deficits. motor and sensory intact Skin: No new skin lesions Results Results 24hrs Laboratory Tests Test 11/21/18 09:05 11/21/18 10:14 11/21/18 11:10 11/21/18 11:53 Bedside Glucose 381 H 317 H 378 H 312 H Test 11/21/18 12:58 11/21/18 14:25 11/21/18 15:35 11/21/18 16:33 Bedside Glucose 293 H 182 130 103 Test 11/21/18 17:20 11/21/18 19:33 11/21/18 21:12 11/21/18 23:12 Bedside Glucose 136 117 116 115 Test 11/22/18 00:47 11/22/18 03:06 11/22/18 04:32 11/22/18 05:03 Bedside Glucose 113 106 111 White Blood Count 17.4 #H Red Blood Count 2.58 #L Hemoglobin 7.5 #L Hematocrit 21.3 #L Mean Corpuscular 82.6 Volume Mean Corpuscular 29.1 Hemoglobin Mean Corpuscular 35.2 Hemoglobin Concent Red Cell 13.3 Distribution Width Platelet Count 240 Mean Platelet Volume 10.1 Immature 1.000 H Granulocytes % Neutrophils % 83.0 H Lymphocytes % 6.2 L Monocytes % 9.3 Eosinophils % 0.2 Basophils % 0.3 Nucleated Red Blood 0.0 Cells % Immature 0.180 H Granulocytes # Neutrophils # 14.5 H Lymphocytes # 1.1 Monocytes # 1.6 H Eosinophils # 0.0 Basophils # 0.1 Nucleated Red Blood 0.0 Cells # Sodium Level 137 Potassium Level 3.0 L Chloride Level 108 Carbon Dioxide Level 18 L Anion Gap 11 # Blood Urea Nitrogen 29 #H Creatinine 1.76 H Est Glomerular 42 L Filtrat Rate mL/min Glucose Level 112 # Calcium Level 7.9 L Magnesium Level 2.3 Total Bilirubin 0.2 Direct Bilirubin 0.00 Indirect Bilirubin 0.2 Aspartate Amino 55 H Transf (AST/SGOT) Alanine 33 Aminotransferase (AL T/SGPT) Alkaline Phosphatase 449 #H Total Protein 6.2 Albumin 2.9 L Globulin 3.30 H Albumin/Globulin 0.87 Ratio Test 11/22/18 07:03 Bedside Glucose 104 Medications Medication Current Medications Sodium Chloride 1,000 ml @ 100 mls/hr Q10H IV Last administered on 11/22/18 06:43; Admin Dose 100 MLS/HR; Start 11/20/18 at 12:52 IV Flush (NS 3 ml) 3 ml PER PROTOCOL IV ; Start 11/20/18 at 13:00 Ondansetron HCl (Zofran Inj) 4 mg Q6H PRN IV NAUSEA/VOMITING Last administered on 11/21/18 09:06; Admin Dose 4 MG; Start 11/20/18 at 13:00 Acetaminophen (Tylenol Tab) 650 mg Q6H PRN PO .PAIN 1-3 OR TEMP Last administered on 11/20/18 18:37; Admin Dose 650 MG; Start 11/20/18 at 13:00 Famotidine (Pepcid) 20 mg DAILY PO Last administered on 11/22/18 08:16; Admin Dose 20 MG; Start 11/20/18 at 14:00 Heparin Sodium (Porcine) (Heparin (5000 Units/1ml)) 5,000 unit Q12 SC Last administered on 11/22/18 08:20; Admin Dose 5,000 UNIT; Start 11/20/18 at 21:00 Cefepime HCl 50 ml @ 100 mls/hr Q24H IV Last administered on 11/21/18 20:06; Admin Dose 100 MLS/HR; Start 11/20/18 at 21:00 Miscellaneous Information 1 ea NOTE XX ; Start 11/20/18 at 18:00 Miscellaneous Information (Pending Santyl Order For Wound Care) This patient khan... PRN PRN XX WOUND CARE; Start 11/20/18 at 18:30 Norepinephrine 250 ml @ 1.875 mls/ hr TITRATE IV Last administered on 11/20/18 23:15; Admin Dose 3.75 MLS/HR; Start 11/20/18 at 22:30 Diagnostic Test (Pha) (Accu-Chek) 1 ea Q1H XX Last administered on 11/22/18 08:06; Admin Dose 1 EA; Start 11/21/18 at 07:00 Insulin Human Regular 100 unit/ Sodium Chloride 100 ml @ 0 mls/hr PER PROTOCOL IV Last administered on 11/21/18at 09:17; Admin Dose 0 MLS/HR; Start 11/21/18 at 07:00 Miscellaneous Information (* Miscellaneous Pharmacy Order) Treatment of Hypoglycemia: 1.BG 51... Per protocol XX ; Start 11/21/18 at 07:00 Dextrose (D50w Syringe) 25 ml Q15M PRN IV .DECREASED GLUCOSE; Start 11/21/18 at 07:00 Dextrose (D50w Syringe) 50 ml Q15M PRN IV .DECREASED GLUCOSE; Start 11/21/18 at 07:00 Nystatin (Nystatin Oint) 1 applic TID TOP Last administered on 11/22/18at 08:16; Admin Dose 1 APPLIC; Start 11/21/18 at 09:00 Ferric Sodium Gluconate Complex 125 mg/Sodium Chloride 110 ml @ 110 mls/hr DAILY@1300 IVPB Last administered on 11/21/18at 13:04; Admin Dose 110 MLS/HR; Start 11/21/18 at 13:00; Stop 11/25/18 at 13:59 Potassium Chloride (Klor-Con 20) 40 meq ONCE STAT PO ; Start 11/22/18 at 08:45; Stop 11/22/18 at 08:46; Status UNV Potassium Chloride 100 ml @ 50 mls/hr Q2H IVPB ; Start 11/22/18 at 09:00; Stop 11/22/18 at 12:59; Status UNV CÉSAR HYMAN MD Nov 22, 2018 08:48
[2018-11-22] MEDS ORDERED: DICYCLOMINE 10 MG CAP PO PRN (09:30)
[2018-11-22] MEDS ORDERED: LOPERAMIDE 2 MG CAP PO PRN (09:30)
[2018-11-22] MEDS: POTASSIUM CHLORIDE 100 ML IVPB SCH ×2 (09:39→11:26)
[2018-11-22] MEDS: INSULIN ASPART [NOVOLOG] 3 ML PEN SC SCH ×3 (11:30→21:00)
[2018-11-22] MEDS: INSULIN GLARGINE [LANTus] (100 UNITS/ML) SYG SC SCH (11:30)
[2018-11-22] MEDS: LACTOBACILLUS RHAMNOSUS CAP PO SCH ×2 (11:30→17:21)
[2018-11-22] MEDS: SOD FERRIC GLUC COMPLX 125 MG in SOD CHLORIDE 0.9% 100 ML IVPB SCH (13:42)
--- NOTE | 2018-11-22 16:05 | CONS ---
Consult Date/Type/Reason Admit Date/Time Nov 20, 2018 at 11:56 Initial Consult Date 11/20/18 Type of Consultation: Urology Reason for Consultation Urinary retention and bilateral hydronephrosis Requesting Provider: CÉSAR HYMAN MD Date/Time of Note DATE: 11/22/18 TIME: 16:02 Subjective Patient is feeling better and has no pain Objective Vitals Vital Signs Date Temp Pulse Resp B/P (MAP) Pulse Ox O2 O2 Flow FiO2 Time Delivery Rate 11/22/18 77 11 99/72 (81) 99 Room Air 15:00 11/22/18 98.2 12:00 11/21/18 2.0 06:00 Intake and Output 11/21/18 11/21/18 11/22/18 1515:00 23:00 07:00 IntakeIntake Total 1758.5 ml 879.0 ml 1306.0 ml OutputOutput Total 1260 ml 1295 ml 1055 ml BalanceBalance 498.5 ml -416.0 ml 251.0 ml Exam The Ling catheter is draining well and the urine is clear. The renal function continues to improve. Results/Medications Result Diagram: 11/22/18 1305 11/22/18 0432 Results 24 hrs Laboratory Tests Test 11/21/18 16:33 11/21/18 17:20 11/21/18 19:33 11/21/18 21:12 Bedside Glucose 103 136 117 116 Test 11/21/18 23:12 11/22/18 00:47 11/22/18 03:06 11/22/18 04:32 Bedside Glucose 115 113 106 White Blood Count 17.4 #H Red Blood Count 2.58 #L Hemoglobin 7.5 #L Hematocrit 21.3 #L Mean Corpuscular 82.6 Volume Mean Corpuscular 29.1 Hemoglobin Mean Corpuscular 35.2 Hemoglobin Concent Red Cell 13.3 Distribution Width Platelet Count 240 Mean Platelet 10.1 Volume Immature 1.000 H Granulocytes % Neutrophils % 83.0 H Lymphocytes % 6.2 L Monocytes % 9.3 Eosinophils % 0.2 Basophils % 0.3 Nucleated Red 0.0 Blood Cells % Immature 0.180 H Granulocytes # Neutrophils # 14.5 H Lymphocytes # 1.1 Monocytes # 1.6 H Eosinophils # 0.0 Basophils # 0.1 Nucleated Red 0.0 Blood Cells # Sodium Level 137 Potassium Level 3.0 L Chloride Level 108 Carbon Dioxide 18 L Level Anion Gap 11 # Blood Urea 29 #H Nitrogen Creatinine 1.76 H Est Glomerular 42 L Filtrat Rate mL/min Glucose Level 112 # Calcium Level 7.9 L Magnesium Level 2.3 Total Bilirubin 0.2 Direct Bilirubin 0.00 Indirect Bilirubin 0.2 Aspartate Amino 55 H Transf (AST/SGOT) Alanine 33 Aminotransferase ( ALT/SGPT) Alkaline 449 #H Phosphatase Total Protein 6.2 Albumin 2.9 L Globulin 3.30 H Albumin/Globulin 0.87 Ratio Test 11/22/18 05:03 11/22/18 07:03 11/22/18 09:37 11/22/18 11:27 Bedside Glucose 111 104 173 Lab Scanned Report REFERENCE LAB Test 11/22/18 11:28 11/22/18 13:05 11/22/18 13:39 Bedside Glucose 135 135 Hemoglobin 8.1 L Hematocrit 23.2 L Home Meds Reported Medications Insulin Regular, Human (Humulin R) 100 Unit/1 Ml Vial, 0 IJ TIDM A for SLIDING SCALE, VIAL INJECT 15 UNITS-QAM, 10 UNITS-NOON, 10 UNITS-QPM 11/20/18 Insulin Glargine* (Lantus*) 100 Unit/Ml Soln, 35 UNIT SC QHS, #1 VIAL 11/20/18 Loperamide Hcl* (Imodium*) 2 Mg Capsule, 2 MG PO BID PRN for DIARRHEA, CAP MAX 16 mg/day 11/20/18 Medications Current Medications Sodium Chloride 1,000 ml @ 100 mls/hr Q10H IV Last administered on 11/22/18at 06:43; Admin Dose 100 MLS/HR; Start 11/20/18 at 12:52 IV Flush (NS 3 ml) 3 ml PER PROTOCOL IV ; Start 11/20/18 at 13:00 Ondansetron HCl (Zofran Inj) 4 mg Q6H PRN IV NAUSEA/VOMITING Last administered on 11/21/18at 09:06; Admin Dose 4 MG; Start 11/20/18 at 13:00 Acetaminophen (Tylenol Tab) 650 mg Q6H PRN PO .PAIN 1-3 OR TEMP Last administered on 11/20/18at 18:37; Admin Dose 650 MG; Start 11/20/18 at 13:00 Famotidine (Pepcid) 20 mg DAILY PO Last administered on 11/22/18 08:16; Admin Dose 20 MG; Start 11/20/18 at 14:00 Heparin Sodium (Porcine) (Heparin (5000 Units/1ml)) 5,000 unit Q12 SC Last administered on 11/22/18 08:20; Admin Dose 5,000 UNIT; Start 11/20/18 at 21:00 Cefepime HCl 50 ml @ 100 mls/hr Q24H IV Last administered on 11/21/18 20:06; Admin Dose 100 MLS/HR; Start 11/20/18 at 21:00 Miscellaneous Information 1 ea NOTE XX ; Start 11/20/18 at 18:00 [facility] This patient khan... PRN PRN XX WOUND CARE; Start 11/20/18 at 18:30 Insulin Human Regular 100 unit/ Sodium Chloride 100 ml @ 0 mls/hr PER PROTOCOL IV Last administered on 11/21/18 09:17; Admin Dose 0 MLS/HR; Start 11/21/18 at 07:00 Miscellaneous Information (* Miscellaneous Pharmacy Order) Treatment of Hypoglycemia: 1.BG 51... Per protocol XX ; Start 11/21/18 at 07:00 Dextrose (D50w Syringe) 25 ml Q15M PRN IV .DECREASED GLUCOSE; Start 11/21/18 at 07:00 Dextrose (D50w Syringe) 50 ml Q15M PRN IV .DECREASED GLUCOSE; Start 11/21/18 at 07:00 Nystatin (Nystatin Oint) 1 applic TID TOP Last administered on 11/22/18 13:43; Admin Dose 1 APPLIC; Start 11/21/18 at 09:00 Ferric Sodium Gluconate Complex 125 mg/Sodium Chloride 110 ml @ 110 mls/hr DAILY@1300 IVPB Last administered on 11/22/18 13:42; Admin Dose 110 MLS/HR; Start 11/21/18 at 13:00; Stop 11/25/18 at 13:59 Loperamide HCl (Imodium Cap) 2 mg QID PRN PO DIARRHEA Last administered on 11/22/18 09:48; Admin Dose 2 MG; Start 11/22/18 at 09:30 Lactobacillus Acidophilus/ Rhamnosus (Culturelle) 1 cap WITH MEALS PO Last administered on 11/22/18at 11:30; Admin Dose 1 CAP; Start 11/22/18 at 11:30 Dicyclomine HCl (Bentyl) 10 mg QID PRN PO cramps Last administered on 11/22/18at 09:48; Admin Dose 10 MG; Start 11/22/18 at 09:30 Insulin Glargine (Lantus) 35 units DAILY@0800 SC Last administered on 11/22/18at 11:30; Admin Dose 35 UNITS; Start 11/22/18 at 11:00 Insulin Aspart (Novolog Insulin Pen) NOVOLOG *MILD* ALGORITHM WITH MEALS BEDTIME SC ; Start 11/22/18 at 11:30 Ferrous Sulfate (Ferrous Sulfate (Ec)) 325 mg DAILY PO ; Start 11/23/18 at 09:00 Assessment/Plan Hospital Course (Demo Recall) 48-year-old male with past medical history of diabetes mellitus for the past 12 years and cataracts presented to ED complaining of generalized weakness of lower extremities since November 19, 2018. He also had nausea and vomiting for the past 3 days. Patient states he has been experiencing vomiting with PO intake and denies eating outside food, sick contact, or recent travel. patient denies family members having the same symptoms. He has been taking his Lantus daily despite not having good PO intake and concerned about elevated sugars. Patient has been having urinary incontinence for over one year. He wets the bed at night and during the day he does have urinary frequency urgency and urgency incontinence. He has been using diapers for over one year. He has been experiencing diarrhea for the past 6 years with any PO intake with relief when takes Loperamide. Patient was found with elevated glucose in ED in the 600s and UA was positive for UTI. He underwent a CT scan of the abdomen and pelvis and that showed a very distended urinary bladder with a hydronephrosis and tortuous ureters. The patient does have chronic urinary retention and overflow incontinence. That is why he has been wetting the bed at night for 1 year and also having urinary frequency urgency and urgency incontinence during the day. His prostate is not large and is not the cause for his retention. He most likely has neurogenic diabetic bladder causing his urinary retention and the hydronephrosis is secondary to the urinary retention. He should have the Ling catheter and he should be taught to do self intermittent catheterization. His renal function has improved. The creatinine is down to 1.76. Plan is to keep the Ling catheter in and hydrate him. The urine culture showed no growth. He is on cefepime. Continue same treatment. FLORESITA GUPTA MD Nov 22, 2018 16:05
[2018-11-22] MEDS: CEFEPIME 1GM/50 ML (PMX) 50 ML IV SCH ×2 (21:00→23:44)
[2018-11-22] MEDS ORDERED: NYSTATIN 15 GM CR TOP SCH (21:00)
[2018-11-23 02:03] VITALS: BP 112/69; PULSE 85; RESP 18
[2018-11-23] MEDS: SOD CHLORIDE 0.9% 1,000 ML IV SCH ×2 (06:10→13:46)
[2018-11-23 07:31] VITALS: BP 101/64; PULSE 76; RESP 18
[2018-11-23] MEDS: INSULIN ASPART [NOVOLOG] 3 ML PEN SC SCH ×4 (07:50→20:42)
[2018-11-23] MEDS: LACTOBACILLUS RHAMNOSUS CAP PO SCH ×3 (08:31→17:35)
[2018-11-23] MEDS: HEPARIN 5,000 UNIT/1 ML VIAL SC SCH ×2 (08:31→20:41)
[2018-11-23] MEDS: FAMOTIDINE 20 MG TAB PO SCH (08:31)
[2018-11-23] MEDS: FERROUS SULFATE (EC) 325 MG TAB PO SCH (08:31)
[2018-11-23] MEDS: INSULIN GLARGINE [LANTus] (100 UNITS/ML) SYG SC SCH (08:32)
[2018-11-23] MEDS: NYSTATIN 15 GM OINT TOP SCH ×3 (08:32→20:37)
[2018-11-23] MEDS ORDERED: POTASSIUM CHLORIDE 20 MEQ POWDER FOR ORAL SOLN PO SCH (10:30)
[2018-11-23] MEDS ORDERED: GLUCAGON 1 MG INJ IM PRN (13:30)
[2018-11-23] MEDS ORDERED: DEXTROSE 50% 50 ML SYRINGE IV PRN ×2 (13:30)
[2018-11-23] MEDS ORDERED: GLUCOSE GEL 15 GRAM TUBE BUCCAL PRN (13:30)
[2018-11-23] MEDS ORDERED: GLUCOSE GEL 15 GRAM TUBE PO PRN ×2 (13:30)
[2018-11-23] MEDS: SOD FERRIC GLUC COMPLX 125 MG in SOD CHLORIDE 0.9% 100 ML IVPB SCH (13:46)
--- NOTE | 2018-11-23 13:57 | PN ---
Date/Time of Note Date/Time of Note DATE: 11/23/18 TIME: 13:56 Objective Vitals Vital Signs Date Temp Pulse Resp B/P (MAP) Pulse Ox O2 O2 Flow FiO2 Time Delivery Rate 11/23/18 98.2 76 18 101/64 98 Room Air 07:31 (76) 11/21/18 2.0 06:00 Intake and Output 11/22/18 11/22/18 11/23/18 1414:59 22:59 06:59 IntakeIntake Total 1631.5 ml 710 ml 1550 ml OutputOutput Total 1200 ml 600 ml 1800 ml BalanceBalance 431.5 ml 110 ml -250 ml Results Result Diagram: 11/23/1844211/23/18442 Medications Medications Current Medications Sodium Chloride 1,000 ml @ 100 mls/hr Q10H IV Last administered on 11/23/18at 1 3:46; Admin Dose 100 MLS/HR; Start 11/20/18 at 12:52 IV Flush (NS 3 ml) 3 ml PER PROTOCOL IV ; Start 11/20/18 at 13:00 Ondansetron HCl (Zofran Inj) 4 mg Q6H PRN IV NAUSEA/VOMITING Last administered on 11/21/18 09:06; Admin Dose 4 MG; Start 11/20/18 at 13:00 Acetaminophen (Tylenol Tab) 650 mg Q6H PRN PO .PAIN 1-3 OR TEMP Last administered on 11/20/18at 18:37; Admin Dose 650 MG; Start 11/20/18 at 13:00 Famotidine (Pepcid) 20 mg DAILY PO Last administered on 11/23/18 08:31; Admin Dose 20 MG; Start 11/20/18 at 14:00 Heparin Sodium (Porcine) (Heparin (5000 Units/1ml)) 5,000 unit Q12 SC Last administered on 11/23/18 08:31; Admin Dose 5,000 UNIT; Start 11/20/18 at 21:00 Cefepime HCl 50 ml @ 100 mls/hr Q24H IV Last administered on 11/22/18at 23:44; Admin Dose 100 MLS/HR; Start 11/20/18 at 21:00 Miscellaneous Information 1 ea NOTE XX ; Start 11/20/18 at 18:00 Miscellaneous Information (Pending Santyl Order For Wound Care) This patient khan... PRN PRN XX WOUND CARE; Start 11/20/18 at 18:30 Nystatin (Nystatin Oint) 1 applic TID TOP Last administered on 11/23/18 12:49; Admin Dose 1 APPLIC; Start 11/21/18 at 09:00 Ferric Sodium Gluconate Complex 125 mg/Sodium Chloride 110 ml @ 110 mls/hr DAILY@1300 IVPB Last administered on 11/23/18 13:46; Admin Dose 110 MLS/HR; Start 11/21/18 at 13:00; Stop 11/25/18 at 13:59 Loperamide HCl (Imodium Cap) 2 mg QID PRN PO DIARRHEA Last administered on 11/22/18 09:48; Admin Dose 2 MG; Start 11/22/18 at 09:30 Lactobacillus Acidophilus/ Rhamnosus (Culturelle) 1 cap WITH MEALS PO Last administered on 11/23/18 12:49; Admin Dose 1 CAP; Start 11/22/18 at 11:30 Dicyclomine HCl (Bentyl) 10 mg QID PRN PO cramps Last administered on 11/22/18 09:48; Admin Dose 10 MG; Start 11/22/18 at 09:30 Insulin Glargine (Lantus) 35 units DAILY@0800 SC Last administered on 11/23/18 08:32; Admin Dose 35 UNITS; Start 11/22/18 at 11:00 Insulin Aspart (Novolog Insulin Pen) NOVOLOG *MILD* ALGORITHM WITH MEALS BEDTIME SC Last administered on 11/23/18 12:50; Admin Dose 1 UNIT; Start 11/22/18 at 11:30 Ferrous Sulfate (Ferrous Sulfate (Ec)) 325 mg DAILY PO Last administered on 11/23/18 08:31; Admin Dose 325 MG; Start 11/23/18 at 09:00 Miscellaneous Information 1 ea NOTE XX ; Start 11/23/18 at 13:30 Glucose (Glutose) 15 gm Q15M PRN PO DECREASED GLUCOSE; Start 11/23/18 at 13:30 Glucose (Glutose) 22.5 gm Q15M PRN PO DECREASED GLUCOSE; Start 11/23/18 at 13:30 Dextrose (D50w Syringe) 25 ml Q15M PRN IV DECREASED GLUCOSE; Start 11/23/18 at 13:30 Dextrose (D50w Syringe) 50 ml Q15M PRN IV DECREASED GLUCOSE; Start 11/23/18 at 13:30 Glucagon (Glucagen) 1 mg Q15M PRN IM DECREASED GLUCOSE; Start 11/23/18 at 13:30 Glucose (Glutose) 15 gm Q15M PRN BUCCAL DECREASED GLUCOSE; Start 11/23/18 at 13:30 VTE [place] [facility] [place]: 4 [place] [facility] [place] Yes SCD contraindication: other Lines/Catheters IV Catheter Type: PICC Line Central line still needed: Yes Nagel in Place: No Assessment/Plan Hospital Course Subjective Patient feeling much better, still with Nagel Objective Physical exam General: Patient is laying in bed and answers questions appropriately Mentation: Patient is alert and oriented 4, Head: Normocephalic atraumatic Eyes: EOMI, pupils reactive to light Neck: Supple, nontender, midline Respiratory: Clear to auscultation bilaterally Cardiovascular: regular rate, no obvious murmurs Gastrointestinal: non-tender to palpation, bowel sounds heard. Neurological: Moves all extremities spontaneously Skin: No new skin lesions Assessment/Plan 1. Septic shock secondary to UTI, resolved - off pressor support and doing well - WBC trending downward - Urine cx showing no growth - continue IVF 2. LUZ on ?CKD- improving - Cr continues to improve daily and will hold off on Nephrology consultation given appears postobstructive etiology and improvement after nagel placed - CT scan of abdomen/pelvis results noted - cont fluids 3. Right hydronephrosis with ureter abnl - Urology on board and appreciate recommendations. Nagel in place and discussed with patient he will need outpatient follow up and continued nagel use vs straight cath at home - Most likely contributing to LUZ 4. Diabetes Mellitus with hyperglycemia - A1c noted - SC insulin for now - ISS and accuchecks - DM education consultation placed 5. LE weakness - PT/OT consulted 6. Nausea with vomiting- resolved - most likely viral gastroenteritis - supportive treatment 7. Chronic diarrhea - resume home loperamide 8. iron deficiency anemia - IV iron and will start PO 9. Disposition -Infectious disease consultation to make recommendations on final antibiotic regimen -Urology recommendations pending, continue with Nagel versus intermittent catheterization, will touch base with urology before DC likely in 1-2 days. YOJANA JOHNSTON Nov 23, 2018 13:56
[2018-11-23 14:27] VITALS: BP 95/57; PULSE 84; RESP 18
[2018-11-23] MEDS ORDERED: CEFTRIAXONE 1 GM/50 ML (PMX) 50 ML IVPB SCH (14:30)
--- NOTE | 2018-11-23 15:08 | CONS ---
DATE OF ADMISSION: 11/20/2018 DATE OF CONSULTATION: 11/23/2018 TYPE OF CONSULTATION: Infectious disease. REQUESTING PHYSICIAN: Yojana Zamarripa MD Thank you Dr. Zamarripa for this consultation. HISTORY OF PRESENT ILLNESS: This is a well-nourished, well-developed, middle-aged man with a history of poorly controlled diabetes, cataracts, admitted with generalized weakness and septic cheo ck, also nausea and vomiting. The patient was in ICU on pressors. The patient also had a history of urinary retention and incontinence for a year as well as frequency and urgency during the day. Temp erature on admission was 101. WBC 23,000, H and H 9.8 and 27.4, platelets 266, neutrophils 88, sodiu m 117, potassium 4.2, BUN 63, creatinine 3.78, glucose 675, lactic acid 1.5. CT of the abdomen and p khadar revealed significantly enlarged bladder with no suspicious mass or wall thickening. Bladder ou tlet obstruction and neurogenic bladder in differential diagnosis. Moderate right-sided hydronephros is with mild cortical atrophy suggestive of chronic nature of hydronephrosis, abnormal course of the proximal right ureter with sharp superior turn. There is mild to moderate diffuse right greater than left ureteral dilatation. No intraabdominal fluid collection. The patient had a CT of the brain th at revealed no acute intracranial hemorrhage, infarction or mass effect. Chest x-ray was negative. He was started on cefepime with marked improvement. The patient also was seen by Dr. Pulido in urol ogy consultation, who placed the Ling and recommends intermittent catheterization long-term. PAST SURGICAL HISTORY: The patient had a skin graft to right lower extremity. SOCIAL HISTORY: Per report, no smoking, alcohol or illicits. The patient came from home. REVIEW OF SYSTEMS: The patient is awake, alert. Denies pain, discomfort. VITAL SIGNS: With a T-max yesterday of 99.7. Currently, temperature 98.2, pulse 76, respirations 18 , blood pressure 101/64, saturation 98 on room air. LABORATORY DATA: WBC today 11.9, H and H of 8.2 and 23.6, platelets 278, neutrophils 72.7. Sodium 1 37, BUN 20, creatinine 1.52. MICROBIOLOGY: Blood culture since admission is negative. Urine culture on admission grew Kayley al bicans and Streptococcus agalactiae less than 10,000 colonies . Repeat urine culture is negativ e. MRSA swab is negative. PHYSICAL EXAMINATION: GENERAL: This is a well-developed, well-nourished, middle-aged man who looks older than his age. The patient is alert and in no distress. HEENT: Head is atraumatic, normocephalic. NECK: Supple. CHEST: Rise symmetrical. Breath sounds diminished to bases. HEART: S1, S2. ABDOMEN: Soft. Bowel tones are present. EXTREMITIES: Without cyanosis. DIAGNOSTIC IMPRESSION: This is a 48-year-old man admitted with severe sepsis, hyperglycemia, acute r enal failure, bilateral hydronephrosis and urinary retention. The patient is markedly improving. He is being seen by urology. He is currently on cefepime and doing better, status post PICC line place d on admission. He also has Ling catheter. His nausea and vomiting resolved. Urine culture repeat ed negative. We will change antibiotics to IV Rocephin. We will give him a dose of fluconazole. An ticipate discharge on oral antibiotics to complete 10 to 14 days total antibiotics. He may be discha rged on oral amoxicillin. Above was discussed with Dr. Rankin who is covering for Dr. Drake. Dictated By: REINA TAFOYA TOPOGRAPHICAL FIELD ASSISTANT for KATHRINE DRAKE MD NI/NTS Conf#: [id number] DID#: [id number] CC: CÉSAR HYMAN MD; YOJANA ZAMARRIPA MD;*EndCC*
[2018-11-23] MEDS ORDERED: FLUCONAZOLE 200 MG TAB PO ONE (16:00)
--- NOTE | 2018-11-23 18:29 | CONS ---
Consult Date/Type/Reason Admit Date/Time Nov 20, 2018 at 11:56 Initial Consult Date 11/20/18 Type of Consultation: Urology Reason for Consultation Urinary retention, bilateral hydronephrosis and urinary tract infection Requesting Provider: CÉSAR HYMAN MD Date/Time of Note DATE: 11/23/18 TIME: 18:26 Subjective The patient feels much better and his renal function has continued to improve with the indwelling Ling catheter Objective Vitals Vital Signs Date Temp Pulse Resp B/P (MAP) Pulse Ox O2 O2 Flow FiO2 Time Delivery Rate 11/23/18 98.0 84 18 95/57 (70) 98 Room Air 14:27 11/21/18 2.0 06:00 Intake and Output 11/22/18 11/22/18 11/23/18 1515:00 23:00 07:00 IntakeIntake Total 1840.5 ml 500 ml 1550 ml OutputOutput Total 1225 ml 400 ml 1800 ml BalanceBalance 615.5 ml 100 ml -250 ml Exam Ling catheter is draining clear urine. Results/Medications Result Diagram: 11/23/18 0443 11/23/18 0443 Results 24 hrs Laboratory Tests Test 11/22/18 21:00 11/23/18 04:43 11/23/18 08:26 11/23/18 12:46 Bedside Glucose 137 139 166 White Blood Count 11.9 #H Red Blood Count 2.87 L Hemoglobin 8.2 L Hematocrit 23.6 L Mean Corpuscular 82.2 Volume Mean Corpuscular 28.6 L Hemoglobin Mean Corpuscular 34.7 Hemoglobin Concent Red Cell 13.9 Distribution Width Platelet Count 278 Mean Platelet Volume 9.8 Immature 1.100 H Granulocytes % Neutrophils % 72.7 Lymphocytes % 10.6 L Monocytes % 14.0 H Eosinophils % 1.2 Basophils % 0.4 Nucleated Red Blood 0.0 Cells % Immature 0.130 H Granulocytes # Neutrophils # 8.7 H Lymphocytes # 1.3 Monocytes # 1.7 H Eosinophils # 0.1 Basophils # 0.1 Nucleated Red Blood 0.0 Cells # Sodium Level 137 Potassium Level 3.3 L Chloride Level 110 Carbon Dioxide Level 19 L Anion Gap 8 Blood Urea Nitrogen 20 Creatinine 1.52 H Est Glomerular 49 L Filtrat Rate mL/min Glucose Level 135 Calcium Level 8.2 L Magnesium Level 2.1 Total Bilirubin 0.3 Direct Bilirubin 0.00 Indirect Bilirubin 0.3 Aspartate Amino 38 Transf (AST/SGOT) Alanine 30 Aminotransferase (AL T/SGPT) Alkaline Phosphatase 462 H Total Protein 5.8 L Albumin 2.7 L Globulin 3.10 Albumin/Globulin 0.87 Ratio Test 11/23/18 17:37 Bedside Glucose 168 Home Meds Reported Medications Insulin Regular, Human (Humulin R) 100 Unit/1 Ml Vial, 0 IJ TIDM A for SLIDING SCALE, VIAL INJECT 15 UNITS-QAM, 10 UNITS-NOON, 10 UNITS-QPM 11/20/18 Insulin Glargine* (Lantus*) 100 Unit/Ml Soln, 35 UNIT SC QHS, #1 VIAL 11/20/18 Loperamide Hcl* (Imodium*) 2 Mg Capsule, 2 MG PO BID PRN for DIARRHEA, CAP MAX 16 mg/day 11/20/18 Medications Current Medications Sodium Chloride 1,000 ml @ 100 mls/hr Q10H IV Last administered on 11/23/18at 13:46; Admin Dose 100 MLS/HR; Start 11/20/18 at 12:52 IV Flush (NS 3 ml) 3 ml PER PROTOCOL IV ; Start 11/20/18 at 13:00 Ondansetron HCl (Zofran Inj) 4 mg Q6H PRN IV NAUSEA/VOMITING Last administered on 11/21/18at 09:06; Admin Dose 4 MG; Start 11/20/18 at 13:00 Acetaminophen (Tylenol Tab) 650 mg Q6H PRN PO .PAIN 1-3 OR TEMP Last administe red on 11/20/18at 18:37; Admin Dose 650 MG; Start 11/20/18 at 13:00 Famotidine (Pepcid) 20 mg DAILY PO Last administered on 11/23/18at 08:31; Admin Dose 20 MG; Start 11/20/18 at 14:00 Heparin Sodium (Porcine) (Heparin (5000 Units/1ml)) 5,000 unit Q12 SC Last administered on 11/23/18at 08:31; Admin Dose 5,000 UNIT; Start 11/20/18 at 21:00 Miscellaneous Information 1 ea NOTE XX ; Start 11/20/18 at 18:00 Miscellaneous Information ([facility] For [facility] Care) This patient khan... PRN PRN XX WOUND CARE; Start 11/20/18 at 18:30 Nystatin (Nystatin Oint) 1 applic TID TOP Last administered on 11/23/18at 12:49; Admin Dose 1 APPLIC; Start 11/21/18 at 09:00 Ferric Sodium Gluconate Complex 125 mg/Sodium Chloride 110 ml @ 110 mls/hr DAILY@1300 IVPB Last administered on 11/23/18 13:46; Admin Dose 110 MLS/HR; Start 11/21/18 at 13:00; Stop 11/25/18 at 13:59 Loperamide HCl (Imodium Cap) 2 mg QID PRN PO DIARRHEA Last administered on 11/22/18 09:48; Admin Dose 2 MG; Start 11/22/18 at 09:30 Lactobacillus Acidophilus/ Rhamnosus (Culturelle) 1 cap WITH MEALS PO Last administered on 11/23/18at 17:35; Admin Dose 1 CAP; Start 11/22/18 at 11:30 Dicyclomine HCl (Bentyl) 10 mg QID PRN PO cramps Last administered on 11/22/18 09:48; Admin Dose 10 MG; Start 11/22/18 at 09:30 Insulin Glargine (Lantus) 35 units DAILY@0800 SC Last administered on 11/23/18 08:32; Admin Dose 35 UNITS; Start 11/22/18 at 11:00 Insulin Aspart (Novolog Insulin Pen) NOVOLOG *MILD* ALGORITHM WITH MEALS BEDTIME SC Last administered on 11/23/18at 17:39; Admin Dose 1 UNIT; Start 11/22/18 at 11:30 Ferrous Sulfate (Ferrous Sulfate (Ec)) 325 mg DAILY PO Last administered on 11/23/18 08:31; Admin Dose 325 MG; Start 11/23/18 at 09:00 Miscellaneous Information 1 ea NOTE XX ; Start 11/23/18 at 13:30 Glucose (Glutose) 15 gm Q15M PRN PO DECREASED GLUCOSE; Start 11/23/18 at 13:30 Glucose (Glutose) 22.5 gm Q15M PRN PO DECREASED GLUCOSE; Start 11/23/18 at 13:30 Dextrose (D50w Syringe) 25 ml Q15M PRN IV DECREASED GLUCOSE; Start 11/23/18 at 13:30 Dextrose (D50w Syringe) 50 ml Q15M PRN IV DECREASED GLUCOSE; Start 11/23/18 at 13:30 Glucagon (Glucagen) 1 mg Q15M PRN IM DECREASED GLUCOSE; Start 11/23/18 at 13:30 Glucose (Glutose) 15 gm Q15M PRN BUCCAL DECREASED GLUCOSE; Start 11/23/18 at 13:30 Ceftriaxone Sodium 50 ml @ 100 mls/hr Q24H IVPB Last administered on 11/23/18at 15:27; Admin Dose 100 MLS/HR; Start 11/23/18 at 14:30 Assessment/Plan Hospital Course (Demo Recall) 48-year-old male with past medical history of diabetes mellitus for the past 12 years and cataracts presented to ED complaining of generalized weakness of lower extremities since November 19, 2018. He also had nausea and vomiting for the past 3 days. Patient states he has been experiencing vomiting with PO intake and denies eating outside food, sick contact, or recent travel. patient denies family members having the same symptoms. He has been taking his Lantus daily despite not having good PO intake and concerned about elevated sugars. Patient has been having urinary incontinence for over one year. He wets the bed at night and during the day he does have urinary frequency urgency and urgency incontinence. He has been using diapers for over one year. He has been experiencing diarrhea for the past 6 years with any PO intake with relief when takes Loperamide. Patient was found with elevated glucose in ED in the 600s and UA was positive for UTI. He underwent a CT scan of the abdomen and pelvis and that showed a very distended urinary bladder with a hydronephrosis and tortuous ureters. The patient does have chronic urinary retention and overflow incontinence. That is why he has been wetting the bed at night for 1 year and also having urinary frequency urgency and urgency incontinence during the day. His prostate is not large and is not the cause for his retention. He most likely has neurogenic diabetic bladder causing his urinary retention and the hydronephrosis is sec ondary to the urinary retention. He should have the Ling catheter and he should be taught to do self intermittent catheterization. His renal function has improved. The creatinine is down to 1.52. Plan is to keep the Ling catheter in and hydrate him. The urine culture showed no growth. He is on cefepime. Continue same treatment. FLORESITA GUPTA MD Nov 23, 2018 18:29
[2018-11-23 20:00] VITALS: BP 117/73; PULSE 75; RESP 17
[2018-11-24] MEDS: SOD CHLORIDE 0.9% 1,000 ML IV SCH (01:28)
[2018-11-24 02:10] VITALS: BP 102/59; PULSE 81; RESP 19
[2018-11-24 07:18] VITALS: BP 122/74; PULSE 77; RESP 18
[2018-11-24] MEDS: INSULIN ASPART [NOVOLOG] 3 ML PEN SC SCH ×4 (07:50→21:06)
[2018-11-24] MEDS: LACTOBACILLUS RHAMNOSUS CAP PO SCH ×3 (07:59→18:23)
[2018-11-24] MEDS: ACETAMINOPHEN 325 MG TAB PO PRN (07:59)
[2018-11-24] MEDS: FERROUS SULFATE (EC) 325 MG TAB PO SCH (09:20)
[2018-11-24] MEDS: FAMOTIDINE 20 MG TAB PO SCH (09:20)
[2018-11-24] MEDS: HEPARIN 5,000 UNIT/1 ML VIAL SC SCH ×2 (09:23→21:07)
[2018-11-24] MEDS: NYSTATIN 15 GM OINT TOP SCH ×3 (09:24→21:07)
[2018-11-24] MEDS: SOD FERRIC GLUC COMPLX 125 MG in SOD CHLORIDE 0.9% 100 ML IVPB SCH (13:51)
[2018-11-24 14:24] VITALS: BP 132/82; PULSE 79; RESP 20
[2018-11-24] MEDS ORDERED: POTASSIUM CHLORIDE 20 MEQ POWDER FOR ORAL SOLN PO ONE (14:30)
[2018-11-24] MEDS ORDERED: INSULIN GLARGINE [LANTus] (100 UNITS/ML) SYG SC SCH (15:00)
[2018-11-24] MEDS ORDERED: LOPERAMIDE 2 MG CAP PO PRN (15:00)
[2018-11-24] MEDS ORDERED: Insulin Glargine SC (15:01)
[2018-11-24] MEDS ORDERED: FER325 PO (15:01)
[2018-11-24] MEDS ORDERED: AMOX500C2 PO (15:01)
--- NOTE | 2018-11-24 15:13 | PN ---
Date/Time of Note Date/Time of Note DATE: 11/24/18 TIME: 15:11 Objective Vitals Vital Signs Date Temp Pulse Resp B/P (MAP) Pulse Ox O2 O2 Flow FiO2 Time Delivery Rate 11/24/18 98.6 79 20 132/82 99 Room Air 14:24 (99) 11/21/18 2.0 06:00 Intake and Output 11/23/18 11/23/18 11/24/18 1515:00 23:00 07:00 IntakeIntake Total 1310 ml 775 ml 675 ml OutputOutput Total 2000 ml 1000 ml 2500 ml BalanceBalance -690 ml -225 ml -1825 ml Results Result Diagram: 11/24/1842411/24/18424 Medications Medications Current Medications Sodium Chloride 1,000 ml @ 100 mls/hr Q10H IV Last administered on 11/24/18 01:28; Admin Dose 100 MLS/HR; Start 11/20/18 at 12:52 IV Flush (NS 3 ml) 3 ml PER PROTOCOL IV ; Start 11/20/18 at 13:00 Ondansetron HCl (Zofran Inj) 4 mg Q6H PRN IV NAUSEA/VOMITING Last administered on 11/21/18 09:06; Admin Dose 4 MG; Start 11/20/18 at 13:00 Acetaminophen (Tylenol Tab) 650 mg Q6H PRN PO .PAIN 1-3 OR TEMP Last administered on 11/24/18 07:59; Admin Dose 650 MG; Start 11/20/18 at 13:00 Famotidine (Pepcid) 20 mg DAILY PO Last administered on 11/24/18 09:20; Admin Dose 20 MG; Start 11/20/18 at 14:00 Heparin Sodium (Porcine) (Heparin (5000 Units/1ml)) 5,000 unit Q12 SC Last administered on 11/24/18 09:23; Admin Dose 5,000 UNIT; Start 11/20/18 at 21:00 Miscellaneous Information 1 ea NOTE XX ; Start 11/20/18 at 18:00 Miscellaneous Information (Pending Santyl Order For Wound Care) This patient khan... PRN PRN XX WOUND CARE; Start 11/20/18 at 18:30 Nystatin (Nystatin Oint) 1 applic TID TOP Last administered on 11/24/18 13:51; Admin Dose 1 APPLIC; Start 11/21/18 at 09:00 Ferric Sodium Gluconate Complex 125 mg/Sodium Chloride 110 ml @ 110 mls/hr DAILY@1300 IVPB Last administered on 11/24/18 13:51; Admin Dose 110 MLS/HR; Start 11/21/18 at 13:00; Stop 11/25/18 at 13:59 Loperamide HCl (Imodium Cap) 2 mg QID PRN PO DIARRHEA Last administered on 11/22/18 09:48; Admin Dose 2 MG; Start 11/22/18 at 09:30 Lactobacillus Acidophilus/ Rhamnosus (Culturelle) 1 cap WITH MEALS PO Last administered on 11/24/18 13:48; Admin Dose 1 CAP; Start 11/22/18 at 11:30 Dicyclomine HCl (Bentyl) 10 mg QID PRN PO cramps Last administered on 11/22/18 09:48; Admin Dose 10 MG; Start 11/22/18 at 09:30 Insulin Aspart (Novolog Insulin Pen) NOVOLOG *MILD* ALGORITHM WITH MEALS BEDTIME SC Last administered on 11/24/18 13:50; Admin Dose 1 UNIT; Start 11/22/18 at 11:30 Ferrous Sulfate (Ferrous Sulfate (Ec)) 325 mg DAILY PO Last administered on 11/24/18 09:20; Admin Dose 325 MG; Start 11/23/18 at 09:00 Miscellaneous Information 1 ea NOTE XX ; Start 11/23/18 at 13:30 Glucose (Glutose) 15 gm Q15M PRN PO DECREASED GLUCOSE; Start 11/23/18 at 13:30 Glucose (Glutose) 22.5 gm Q15M PRN PO DECREASED GLUCOSE; Start 11/23/18 at 13:30 Dextrose (D50w Syringe) 25 ml Q15M PRN IV DECREASED GLUCOSE; Start 11/23/18 at 13:30 Dextrose (D50w Syringe) 50 ml Q15M PRN IV DECREASED GLUCOSE; Start 11/23/18 at 13:30 Glucagon (Glucagen) 1 mg Q15M PRN IM DECREASED GLUCOSE; Start 11/23/18 at 13:30 Glucose (Glutose) 15 gm Q15M PRN BUCCAL DECREASED GLUCOSE; Start 11/23/18 at 13:30 Magnesium Sulfate 50 ml @ 25 mls/hr ONCE ONCE IVPB ; Start 11/24/18 at 15:30; Stop 11/24/18 at 17:29 Amoxicillin (Amoxicillin) 500 mg Q8 PO ; Start 11/24/18 at 14:30 Insulin Glargine (Lantus) 27 units DAILY@0800 SC ; Start 11/24/18 at 15:00 Loperamide HCl (Imodium Cap) 2 mg QID PRN PO DIARRHEA; Start 11/24/18 at 15:00 VTE Prophylaxis Risk score (from Nsg)>0 risk: 3 SCD applied (from Ns): Yes Lines/Catheters IV Catheter Type: Nagel in Place: No Assessment/Plan Hospital Course Subjective Patient feeling much better,nagel removed Objective Physical exam General: Patient is laying in bed and answers questions appropriately Mentation: Patient is alert and oriented 4, Head: Normocephalic atraumatic Eyes: EOMI, pupils reactive to light Neck: Supple, nontender, midline Respiratory: Clear to auscultation bilaterally Cardiovascular: regular rate, no obvious murmurs Gastrointestinal: non-tender to palpation, bowel sounds heard. Neurological: Moves all extremities spontaneously Skin: No new skin lesions Assessment/Plan 1. Septic shock secondary to UTI, resolved - off pressor support and doing well - WBC trending downward - Urine cx showing no growth - 2. LUZ on ?CKD- improving - Cr continues to improve daily and will hold off on Nephrology consultation given appears postobstructive etiology and improvement after nagel placed - CT scan of abdomen/pelvis results noted -Monitor 3. Right hydronephrosis with ureter abnl - Urology on board and appreciate recommendations. Nagel removed, patient will need to do intermittent catheterization at home - Most likely contributing to LUZ 4. Diabetes Mellitus with hyperglycemia - A1c noted - SC insulin for now - ISS and accuchecks - DM education consultation placed 5. LE weakness - PT/OT consulted 6. Nausea with vomiting- resolved - most likely viral gastroenteritis - supportive treatment 7. Chronic diarrhea - resume home loperamide 8. iron deficiency anemia - IV iron and will start PO 9. Disposition -Teach patient how to do intermittent catheterization -Start p.o. antibiotic -Likely discharge tomorrow if hemoglobin is stable, abrupt drop today, no sources of bleeding however YOJANA JOHNSTON Nov 24, 2018 15:12
[2018-11-24] MEDS: AMOXICILLIN 500 MG CAP PO SCH ×2 (15:14→22:47)
[2018-11-24] MEDS ORDERED: MAGNESIUM SULFATE 2 GM/50 ML 50 ML IVPB ONE (15:30)
--- NOTE | 2018-11-24 18:41 | CONS ---
Assessment/Plan Assessment/Plan Hospital Course (Demo Recall) PHYSICAL EXAMINATION: GENERAL: This is a well-developed, well-nourished, middle-aged man who looks older than his age. The patient is alert and in no distress. HEENT: Head is atraumatic, normocephalic. NECK: Supple. CHEST: Rise symmetrical. Breath sounds diminished to bases. HEART: S1, S2. ABDOMEN: Soft. Bowel tones are present. EXTREMITIES: Without cyanosis. Assessment: 1. Status post sepsis 2. Urinary tract infection, resolving 3. Bilateral hydronephrosis 4. Neurogenic bladder 5. Diabetes Plan: Patient is doing better, continue present care, complete 10-14 days antibiotics, follow urology recommendations Consultation Date/Type/Reason Admit Date/Time Nov 20, 2018 at 11:56 Initial Consult Date 11/20/18 Type of Consult id Requesting Provider: CÉSAR HYMAN MD Date/Time of Note DATE: 11/24/18 TIME: 18:39 Exam/Review of Systems Exam Vitals Vital Signs Date Temp Pulse Resp B/P (MAP) Pulse Ox O2 O2 Flow FiO2 Time Delivery Rate 11/24/18 98.6 79 20 132/82 99 Room Air 14:24 (99) 11/21/18 2.0 06:00 Intake and Output 11/23/18 11/23/18 11/24/18 1515:00 23:00 07:00 IntakeIntake Total 1310 ml 775 ml 675 ml OutputOutput Total 2000 ml 1000 ml 2500 ml BalanceBalance -690 ml -225 ml -1825 ml Results Result Diagram: 11/24/18 0425 11/24/18 0425 Results 24hrs Laboratory Tests Test 11/23/18 20:38 11/24/18 04:25 11/24/18 08:10 11/24/18 09:28 Bedside Glucose 154 81 126 White Blood Count 10.0 Red Blood Count 2.53 L Hemoglobin 7.2 L Hematocrit 21.2 L Mean Corpuscular 83.8 Volume Mean Corpuscular 28.5 L Hemoglobin Mean Corpuscular 34.0 Hemoglobin Concent Red Cell 14.7 H Distribution Width Platelet Count 273 Mean Platelet Volume 9.4 Immature 1.300 H Granulocytes % Neutrophils % 70.4 Lymphocytes % 11.6 L Monocytes % 13.8 H Eosinophils % 2.5 Basophils % 0.4 Nucleated Red Blood 0.0 Cells % Immature 0.130 H Granulocytes # Neutrophils # 7.0 Lymphocytes # 1.2 Monocytes # 1.4 H Eosinophils # 0.3 Basophils # 0.0 Nucleated Red Blood 0.0 Cells # Sodium Level 138 Potassium Level 3.1 L Chloride Level 113 H Carbon Dioxide Level 18 L Anion Gap 7 Blood Urea Nitrogen 15 Creatinine 1.09 Est Glomerular > 60 Filtrat Rate mL/min Glucose Level 68 #L Calcium Level 7.2 L Magnesium Level 1.6 L Total Bilirubin 0.2 Direct Bilirubin 0.00 Indirect Bilirubin 0.2 Aspartate Amino 22 Transf (AST/SGOT) Alanine 28 Aminotransferase (AL T/SGPT) Alkaline Phosphatase 372 H Total Protein 5.4 L Albumin 2.4 L Globulin 3.00 Albumin/Globulin 0.80 Ratio Test 11/24/18 12:13 11/24/18 18:17 Bedside Glucose 170 318 H Medications Medication Current Medications IV Flush (NS 3 ml) 3 ml PER PROTOCOL IV ; Start 11/20/18 at 13:00 Ondansetron HCl (Zofran Inj) 4 mg Q6H PRN IV NAUSEA/VOMITING Last administered on 11/21/18 09:06; Admin Dose 4 MG; Start 11/20/18 at 13:00 Acetaminophen (Tylenol Tab) 650 mg Q6H PRN PO .PAIN 1-3 OR TEMP Last administered on 11/24/18 07:59; Admin Dose 650 MG; Start 11/20/18 at 13:00 Famotidine (Pepcid) 20 mg DAILY PO Last administered on 11/24/18 09:20; Admin Dose 20 MG; Start 11/20/18 at 14:00 Heparin Sodium (Porcine) (Heparin (5000 Units/1ml)) 5,000 unit Q12 SC Last administered on 11/24/18 09:23; Admin Dose 5,000 UNIT; Start 11/20/18 at 21:00 Miscellaneous Information 1 ea NOTE XX ; Start 11/20/18 at 18:00 Miscellaneous Information (Pending Santyl Order For Wound Care) This patient khan... PRN PRN XX WOUND CARE; Start 11/20/18 at 18:30 Nystatin (Nystatin Oint) 1 applic TID TOP Last administered on 11/24/18 13:51; Admin Dose 1 APPLIC; Start 11/21/18 at 09:00 Ferric Sodium Gluconate Complex 125 mg/Sodium Chloride 110 ml @ 110 mls/hr DAILY@1300 IVPB Last administered on 11/24/18 13:51; Admin Dose 110 MLS/HR; Start 11/21/18 at 13:00; Stop 11/25/18 at 13:59 Loperamide HCl (Imodium Cap) 2 mg QID PRN PO DIARRHEA Last administered on 11/22/18 09:48; Admin Dose 2 MG; Start 11/22/18 at 09:30 Lactobacillus Acidophilus/ Rhamnosus (Culturelle) 1 cap WITH MEALS PO Last administered on 11/24/18 18:23; Admin Dose 1 CAP; Start 11/22/18 at 11:30 Dicyclomine HCl (Bentyl) 10 mg QID PRN PO cramps Last administered on 11/22/18 09:48; Admin Dose 10 MG; Start 11/22/18 at 09:30 Insulin Aspart (Novolog Insulin Pen) NOVOLOG *MILD* ALGORITHM WITH MEALS BEDTIME SC Last administered on 11/24/18 18:26; Admin Dose 5 UNIT; Start 11/22/18 at 11:30 Ferrous Sulfate (Ferrous Sulfate (Ec)) 325 mg DAILY PO Last administered on 11/24/18 09:20; Admin Dose 325 MG; Start 11/23/18 at 09:00 Miscellaneous Information 1 ea NOTE XX ; Start 11/23/18 at 13:30 Glucose (Glutose) 15 gm Q15M PRN PO DECREASED GLUCOSE; Start 11/23/18 at 13:30 Glucose (Glutose) 22.5 gm Q15M PRN PO DECREASED GLUCOSE; Start 11/23/18 at 13:30 Dextrose (D50w Syringe) 25 ml Q15M PRN IV DECREASED GLUCOSE; Start 11/23/18 at 13:30 Dextrose (D50w Syringe) 50 ml Q15M PRN IV DECREASED GLUCOSE; Start 11/23/18 at 13:30 Glucagon (Glucagen) 1 mg Q15M PRN IM DECREASED GLUCOSE; Start 11/23/18 at 13:30 Glucose (Glutose) 15 gm Q15M PRN BUCCAL DECREASED GLUCOSE; Start 11/23/18 at 13:30 Amoxicillin (Amoxicillin) 500 mg Q8 PO Last administered on 11/24/18 15:14; Admin Dose 500 MG; Start 11/24/18 at 14:30 Insulin Glargine (Lantus) 27 units DAILY@0800 SC Last administered on 11/24/18at 15:23; Admin Dose 27 UNITS; Start 11/24/18 at 15:00 Loperamide HCl (Imodium Cap) 2 mg QID PRN PO DIARRHEA; Start 11/24/18 at 15:00 REINA TAFOYA NP Nov 24, 2018 18:41
[2018-11-24 20:09] VITALS: BP 148/95; PULSE 84; RESP 18
--- NOTE | 2018-11-24 20:29 | CONS ---
Consult Date/Type/Reason Admit Date/Time Nov 20, 2018 at 11:56 Initial Consult Date 11/20/18 Type of Consultation: Urology Reason for Consultation Urinary retention, neurogenic bladder Requesting Provider: CÉSAR HYMAN MD Date/Time of Note DATE: 11/24/18 TIME: 20:25 Subjective The patient feels much better Objective Vitals Vital Signs Date Temp Pulse Resp B/P (MAP) Pulse Ox O2 O2 Flow FiO2 Time Delivery Rate 11/24/18 97.9 84 18 148/95 96 20:09 (112) 11/24/18 Room Air 14:24 11/21/18 2.0 06:00 Intake and Output 11/23/18 11/23/18 11/24/18 1515:00 23:00 07:00 IntakeIntake Total 1310 ml 775 ml 675 ml OutputOutput Total 2000 ml 1000 ml 2500 ml BalanceBalance -690 ml -225 ml -1825 ml Exam In and out catheterization is being done every 6 hours. The patient and his were taught how to do it. His renal function has improved Results/Medications Result Diagram: 11/24/18 0425 11/24/18 0425 Results 24 hrs Laboratory Tests Test 11/23/18 20:38 11/24/18 04:25 11/24/18 08:10 11/24/18 09:28 Bedside Glucose 154 81 126 White Blood Count 10.0 Red Blood Count 2.53 L Hemoglobin 7.2 L Hematocrit 21.2 L Mean Corpuscular 83.8 Volume Mean Corpuscular 28.5 L Hemoglobin Mean Corpuscular 34.0 Hemoglobin Concent Red Cell 14.7 H Distribution Width Platelet Count 273 Mean Platelet Volume 9.4 Immature 1.300 H Granulocytes % Neutrophils % 70.4 Lymphocytes % 11.6 L Monocytes % 13.8 H Eosinophils % 2.5 Basophils % 0.4 Nucleated Red Blood 0.0 Cells % Immature 0.130 H Granulocytes # Neutrophils # 7.0 Lymphocytes # 1.2 Monocytes # 1.4 H Eosinophils # 0.3 Basophils # 0.0 Nucleated Red Blood 0.0 Cells # Sodium Level 138 Potassium Level 3.1 L Chloride Level 113 H Carbon Dioxide Level 18 L Anion Gap 7 Blood Urea Nitrogen 15 Creatinine 1.09 Est Glomerular > 60 Filtrat Rate mL/min Glucose Level 68 #L Calcium Level 7.2 L Magnesium Level 1.6 L Total Bilirubin 0.2 Direct Bilirubin 0.00 Indirect Bilirubin 0.2 Aspartate Amino 22 Transf (AST/SGOT) Alanine 28 Aminotransferase (AL T/SGPT) Alkaline Phosphatase 372 H Total Protein 5.4 L Albumin 2.4 L Globulin 3.00 Albumin/Globulin 0.80 Ratio Test 11/24/18 12:13 11/24/18 18:17 Bedside Glucose 170 318 H Home Meds Active Scripts [Insulin Glargine] 100 UNITS/ML SOLN No Conflict Check, 27 UNITS SC DAILY@0800 for 30 Days, #1 BOX 2 Refills Prov:YOJANA JOHNSTON 11/24/18 Ferrous Sulfate* (Ferrous Sulfate*) 325 Mg Tabec, 325 MG PO DAILY for 30 Days, #30 TAB 1 Refill Prov:YOJANA JOHNSTON 11/24/18 Amoxicillin* (Amoxicillin*) 500 Mg Cap, 500 MG PO Q8 for 11 Days, #33 CAP Prov:YOJANA JOHNSTON 11/24/18 Reported Medications Insulin Regular, Human (Humulin R) 100 Unit/1 Ml Vial, 0 IJ TIDM A for SLIDING SCALE, VIAL INJECT 15 UNITS-QAM, 10 UNITS-NOON, 10 UNITS-QPM 11/20/18 Insulin Glargine* (Lantus*) 100 Unit/Ml Soln, 35 UNIT SC QHS, #1 VIAL 11/20/18 Loperamide Hcl* (Imodium*) 2 Mg Capsule, 2 MG PO BID PRN for DIARRHEA, CAP MAX 16 mg/day 11/20/18 Medications Current Medications IV Flush (NS 3 ml) 3 ml PER PROTOCOL IV ; Start 11/20/18 at 13:00 Ondansetron HCl (Zofran Inj) 4 mg Q6H PRN IV NAUSEA/VOMITING Last administered on 11/21/18at 09:06; Admin Dose 4 MG; Start 11/20/18 at 13:00 Acetaminophen (Tylenol Tab) 650 mg Q6H PRN PO .PAIN 1-3 OR TEMP Last administered on 11/24/18at 07:59; Admin Dose 650 MG; Start 11/20/18 at 13:00 Famotidine (Pepcid) 20 mg DAILY PO Last administered on 11/24/18at 09:20; Admin Dose 20 MG; Start 11/20/18 at 14:00 Heparin Sodium (Porcine) (Heparin (5000 Units/1ml)) 5,000 unit Q12 SC Last administered on 11/24/18 09:23; Admin Dose 5,000 UNIT; Start 11/20/18 at 21:00 Miscellaneous Information 1 ea NOTE XX ; Start 11/20/18 at 18:00 [facility] This patient khan... PRN PRN XX WOUND CARE; Start 11/20/18 at 18:30 Nystatin (Nystatin Oint) 1 applic TID TOP Last administered on 11/24/18 13:51; Admin Dose 1 APPLIC; Start 11/21/18 at 09:00 Ferric Sodium Gluconate Complex 125 mg/Sodium Chloride 110 ml @ 110 mls/hr DAILY@1300 IVPB Last administered on 11/24/18 13:51; Admin Dose 110 MLS/HR; Start 11/21/18 at 13:00; Stop 11/25/18 at 13:59 Loperamide HCl (Imodium Cap) 2 mg QID PRN PO DIARRHEA Last administered on 11/22/18 09:48; Admin Dose 2 MG; Start 11/22/18 at 09:30 Lactobacillus Acidophilus/ Rhamnosus (Culturelle) 1 cap WITH MEALS PO Last administered on 11/24/18 18:23; Admin Dose 1 CAP; Start 11/22/18 at 11:30 Dicyclomine HCl (Bentyl) 10 mg QID PRN PO cramps Last administered on 11/22/18 09:48; Admin Dose 10 MG; Start 11/22/18 at 09:30 Insulin Aspart (Novolog Insulin Pen) NOVOLOG *MILD* ALGORITHM WITH MEALS BEDTIME SC Last administered on 11/24/18 18:26; Admin Dose 5 UNIT; Start 11/22/18 at 11:30 Ferrous Sulfate (Ferrous Sulfate (Ec)) 325 mg DAILY PO Last administered on 11/24/18 09:20; Admin Dose 325 MG; Start 11/23/18 at 09:00 Miscellaneous Information 1 ea NOTE XX ; Start 11/23/18 at 13:30 Glucose (Glutose) 15 gm Q15M PRN PO DECREASED GLUCOSE; Start 11/23/18 at 13:30 Glucose (Glutose) 22.5 gm Q15M PRN PO DECREASED GLUCOSE; Start 11/23/18 at 13:30 Dextrose (D50w Syringe) 25 ml Q15M PRN IV DECREASED GLUCOSE; Start 11/23/18 at 13:30 Dextrose (D50w Syringe) 50 ml Q15M PRN IV DECREASED GLUCOSE; Start 11/23/18 at 13:30 Glucagon (Glucagen) 1 mg Q15M PRN IM DECREASED GLUCOSE; Start 11/23/18 at 13:30 Glucose (Glutose) 15 gm Q15M PRN BUCCAL DECREASED GLUCOSE; Start 11/23/18 at 13:30 Amoxicillin (Amoxicillin) 500 mg Q8 PO Last administered on 11/24/18at 15:14; Admin Dose 500 MG; Start 11/24/18 at 14:30 Insulin Glargine (Lantus) 27 units DAILY@0800 SC Last administered on 11/24/18at 15:23; Admin Dose 27 UNITS; Start 11/24/18 at 15:00 Loperamide HCl (Imodium Cap) 2 mg QID PRN PO DIARRHEA; Start 11/24/18 at 15:00 Assessment/Plan Hospital Course (Demo Recall) 48-year-old male with past medical history of diabetes mellitus for the past 12 years and cataracts presented to ED complaining of generalized weakness of lower extremities since November 19, 2018. He also had nausea and vomiting for the past 3 days. Patient states he has been experiencing vomiting with PO intake and denies eating outside food, sick contact, or recent travel. patient denies [employer] members having the same symptoms. He has been taking his Lantus daily despite not having good PO intake and concerned about elevated sugars. Patient has been having urinary incontinence for over one year. He wets the bed at night and during the day he does have urinary frequency urgency and urgency incontinence. He has been using diapers for over one year. He has been experiencing diarrhea for the past 6 years with any PO intake with relief when takes Loperamide. Patient was found with elevated glucose in ED in the 600s and UA was positive for UTI. He underwent a CT scan of the abdomen and pelvis and that showed a very distended urinary bladder with a hydronephrosis and tortuous ureters. The patient does have chronic urinary retention and overflow incontinence. That is why he has been wetting the bed at night for 1 year and also having urinary frequency urgency and urgency incontinence during the day. His prostate is not large and is not the cause for his retention. He most likely has neurogenic diabetic bladder causing his urinary retention and the hydronephrosis is secondary to the urinary retention. His creatinine has come down to 1.09. He is being taught as well as his how to do the in and out catheterization so they could continue doing that at home. They should do the catheterization every 6 hours and the bladder volume should not exceed 500 mL to avoid any backing of the urine for the kidney. FLORESITA GUPTA MD Nov 24, 2018 20:29
[2018-11-25 02:38] VITALS: BP 162/93; PULSE 84; RESP 18
[2018-11-25] MEDS: AMOXICILLIN 500 MG CAP PO SCH ×3 (06:16→21:27)
[2018-11-25] MEDS ORDERED: INSULIN GLARGINE [LANTus] (100 UNITS/ML) SYG SC SCH (08:00)
[2018-11-25 08:30] VITALS: BP 97/60; PULSE 87; RESP 18
[2018-11-25] MEDS: INSULIN ASPART [NOVOLOG] 3 ML PEN SC SCH ×4 (09:12→21:20)
[2018-11-25] MEDS: HEPARIN 5,000 UNIT/1 ML VIAL SC SCH ×2 (09:13→21:26)
[2018-11-25] MEDS: FAMOTIDINE 20 MG TAB PO SCH (09:21)
[2018-11-25] MEDS: LACTOBACILLUS RHAMNOSUS CAP PO SCH ×3 (09:21→17:54)
[2018-11-25] MEDS: FERROUS SULFATE (EC) 325 MG TAB PO SCH (09:21)
[2018-11-25] MEDS: NYSTATIN 15 GM OINT TOP SCH ×3 (09:22→21:28)
[2018-11-25] MEDS: INSULIN GLARGINE [LANTus] (100 UNITS/ML) SYG SC SCH (09:40)
[2018-11-25] MEDS: SOD CHLORIDE 0.9% 1,000 ML IV SCH (11:00)
[2018-11-25] MEDS: SOD FERRIC GLUC COMPLX 125 MG in SOD CHLORIDE 0.9% 100 ML IVPB SCH (13:13)
[2018-11-25 13:18] VITALS: BP 99/63; PULSE 83; RESP 17
--- NOTE | 2018-11-25 13:57 | CONS ---
Assessment/Plan Assessment/Plan Hospital Course (Demo Recall) Patient is alert, feels good, denies pain, no fevers overnight. Antimicrobials: Amoxicillin PHYSICAL EXAMINATION: GENERAL: This is a well-developed, well-nourished, middle-aged man who is alert and in no distress. HEENT: Head is atraumatic, normocephalic. NECK: Supple. CHEST: Rise symmetrical. Breath sounds diminished to bases. HEART: S1, S2. ABDOMEN: Soft. Bowel tones are present. EXTREMITIES: Without cyanosis. Assessment: 1. Status post sepsis 2. Urinary tract infection, resolving 3. Bilateral hydronephrosis 4. Neurogenic bladder 5. Diabetes Plan: Remains stable, continue present care, antibiotics to complete 2 weeks Consultation Date/Type/Reason Admit Date/Time Nov 20, 2018 at 11:56 Initial Consult Date 11/20/18 Type of Consult id Requesting Provider: CÉSAR HYMAN MD Date/Time of Note DATE: 11/25/18 TIME: 13:56 Exam/Review of Systems Exam Vitals Vital Signs Date Temp Pulse Resp B/P (MAP) Pulse Ox O2 O2 Flow FiO2 Time Delivery Rate 11/25/18 98.4 83 17 99/63 (75) 99 13:18 11/24/18 Room Air 14:24 Intake and Output 11/24/18 11/24/18 11/25/18 1515:00 23:00 07:00 IntakeIntake Total 1670 ml 890 ml 50 ml OutputOutput Total 951 ml 1680 ml 1100 ml BalanceBalance 719 ml -790 ml -1050 ml Results Result Diagram: 11/25/18 0430 11/25/18 0430 Results 24hrs Laboratory Tests Test 11/24/18 18:17 11/24/18 21:02 11/25/18 02:30 11/25/18 04:30 Bedside Glucose 318 H 217 261 H White Blood Count 10.7 Red Blood Count 3.01 L Hemoglobin 8.5 L Hematocrit 25.5 #L Mean Corpuscular 84.7 Volume Mean Corpuscular 28.2 L Hemoglobin Mean Corpuscular 33.3 Hemoglobin Concent Red Cell 14.6 H Distribution Width Platelet Count 423 #H Mean Platelet Volume 9.7 Immature 1.800 H Granulocytes % Neutrophils % 73.7 Lymphocytes % 10.4 L Monocytes % 10.3 Eosinophils % 3.4 Basophils % 0.4 Nucleated Red Blood 0.0 Cells % Immature 0.190 H Granulocytes # Neutrophils # 7.9 H Lymphocytes # 1.1 Monocytes # 1.1 H Eosinophils # 0.4 Basophils # 0.0 Nucleated Red Blood 0.0 Cells # Sodium Level 138 Potassium Level 4.1 Chloride Level 107 Carbon Dioxide Level 22 Anion Gap 9 Blood Urea Nitrogen 15 Creatinine 1.25 H Est Glomerular > 60 Filtrat Rate mL/min Glucose Level 265 #H Calcium Level 8.6 Phosphorus Level 2.4 L Magnesium Level 2.2 Test 11/25/18 09:08 11/25/18 12:57 Bedside Glucose 305 H 231 H Medications Medication Current Medications IV Flush (NS 3 ml) 3 ml PER PROTOCOL IV ; Start 11/20/18 at 13:00 Ondansetron HCl (Zofran Inj) 4 mg Q6H PRN IV NAUSEA/VOMITING Last administered on 11/21/18 09:06; Admin Dose 4 MG; Start 11/20/18 at 13:00 Acetaminophen (Tylenol Tab) 650 mg Q6H PRN PO .PAIN 1-3 OR TEMP Last administered on 11/24/18 07:59; Admin Dose 650 MG; Start 11/20/18 at 13:00 Famotidine (Pepcid) 20 mg DAILY PO Last administered on 11/25/18 09:21; Admin Dose 20 MG; Start 11/20/18 at 14:00 Heparin Sodium (Porcine) (Heparin (5000 Units/1ml)) 5,000 unit Q12 SC Last administered on 11/25/18 09:13; Admin Dose 5,000 UNIT; Start 11/20/18 at 21:00 Miscellaneous Information 1 ea NOTE XX ; Start 11/20/18 at 18:00 Miscellaneous [facility] This patient khan... PRN PRN XX WOUND CARE; Start 11/20/18 at 18:30 Nystatin (Nystatin Oint) 1 applic TID TOP Last administered on 11/25/18 13:12; Admin Dose 1 APPLIC; Start 11/21/18 at 09:00 Ferric Sodium Gluconate Complex 125 mg/Sodium Chloride 110 ml @ 110 mls/hr DAILY@1300 IVPB Last administered on 11/25/18 13:13; Admin Dose 110 MLS/HR; Start 11/21/18 at 13:00; Stop 11/25/18 at 13:59 Loperamide HCl (Imodium Cap) 2 mg QID PRN PO DIARRHEA Last administered on 11/22/18at 09:48; Admin Dose 2 MG; Start 11/22/18 at 09:30 Lactobacillus Acidophilus/ Rhamnosus (Culturelle) 1 cap WITH MEALS PO Last administered on 11/25/18at 13:13; Admin Dose 1 CAP; Start 11/22/18 at 11:30 Dicyclomine HCl (Bentyl) 10 mg QID PRN PO cramps Last administered on 11/22/18 09:48; Admin Dose 10 MG; Start 11/22/18 at 09:30 Insulin Aspart (Novolog Insulin Pen) NOVOLOG *MILD* ALGORITHM WITH MEALS BEDTIME SC Last administered on 11/25/18 13:11; Admin Dose 3 UNIT; Start 11/22/18 at 11:30 Ferrous Sulfate (Ferrous Sulfate (Ec)) 325 mg DAILY PO Last administered on 11/25/18 09:21; Admin Dose 325 MG; Start 11/23/18 at 09:00 Miscellaneous Information 1 ea NOTE XX ; Start 11/23/18 at 13:30 Glucose (Glutose) 15 gm Q15M PRN PO DECREASED GLUCOSE; Start 11/23/18 at 13:30 Glucose (Glutose) 22.5 gm Q15M PRN PO DECREASED GLUCOSE; Start 11/23/18 at 13:30 Dextrose (D50w Syringe) 25 ml Q15M PRN IV DECREASED GLUCOSE; Start 11/23/18 at 13:30 Dextrose (D50w Syringe) 50 ml Q15M PRN IV DECREASED GLUCOSE; Start 11/23/18 at 13:30 Glucagon (Glucagen) 1 mg Q15M PRN IM DECREASED GLUCOSE; Start 11/23/18 at 13:30 Glucose (Glutose) 15 gm Q15M PRN BUCCAL DECREASED GLUCOSE; Start 11/23/18 at 13:30 Amoxicillin (Amoxicillin) 500 mg Q8 PO Last administered on 11/25/18at 13:13; Admin Dose 500 MG; Start 11/24/18 at 14:30 Loperamide HCl (Imodium Cap) 2 mg QID PRN PO DIARRHEA; Start 11/24/18 at 15:00 Insulin Glargine (Lantus) 35 units DAILY@0800 SC Last administered on 11/25/18at 09:40; Admin Dose 35 UNITS; Start 11/25/18 at 09:30 Sodium Chloride 1,000 ml @ 50 mls/hr Q20H IV Last administered on 11/25/18at 11:00; Admin Dose 50 MLS/HR; Start 11/25/18 at 09:30; Stop 11/26/18 at 05:29 REINA TAFOYA NP Nov 25, 2018 13:57
--- NOTE | 2018-11-25 14:24 | PN ---
Date/Time of Note Date/Time of Note DATE: 11/25/18 TIME: 14:22 Objective Vitals Vital Signs Date Temp Pulse Resp B/P (MAP) Pulse Ox O2 O2 Flow FiO2 Time Delivery Rate 11/25/18 98.4 83 17 99/63 (75) 99 13:18 11/24/18 Room Air 14:24 Intake and Output 11/24/18 11/24/18 11/25/18 1515:00 23:00 07:00 IntakeIntake Total 1670 ml 890 ml 50 ml OutputOutput Total 951 ml 1680 ml 1100 ml BalanceBalance 719 ml -790 ml -1050 ml Results Result Diagram: 11/25/1842911/25/18 043 Medications Medications Current Medications IV Flush (NS 3 ml) 3 ml PER PROTOCOL IV ; Start 11/20/18 at 13:00 Ondansetron HCl (Zofran Inj) 4 mg Q6H PRN IV NAUSEA/VOMITING Last administered on 11/21/18 09:06; Admin Dose 4 MG; Start 11/20/18 at 13:00 Acetaminophen (Tylenol Tab) 650 mg Q6H PRN PO .PAIN 1-3 OR TEMP Last administered on 11/24/18 07:59; Admin Dose 650 MG; Start 11/20/18 at 13:00 Famotidine (Pepcid) 20 mg DAILY PO Last administered on 11/25/18 09:21; Admin Dose 20 MG; Start 11/20/18 at 14:00 Heparin Sodium (Porcine) (Heparin (5000 Units/1ml)) 5,000 unit Q12 SC Last administered on 11/25/18 09:13; Admin Dose 5,000 UNIT; Start 11/20/18 at 21:00 Miscellaneous Information 1 ea NOTE XX ; Start 11/20/18 at 18:00 Miscellaneous Information (Pending [facility] Order For Wound Care) This patient khan... PRN PRN XX WOUND CARE; Start 11/20/18 at 18:30 Nystatin (Nystatin Oint) 1 applic TID TOP Last administered on 11/25/18 13:12; Admin Dose 1 APPLIC; Start 11/21/18 at 09:00 Loperamide HCl (Imodium Cap) 2 mg QID PRN PO DIARRHEA Last administered on 3/10/19at 09:48; Admin Dose 2 MG; Start 11/22/18 at 09:30 Lactobacillus Acidophilus/ Rhamnosus (Culturelle) 1 cap WITH MEALS PO Last administered on 11/25/18 13:13; Admin Dose 1 CAP; Start 11/22/18 at 11:30 Dicyclomine HCl (Bentyl) 10 mg QID PRN PO cramps Last administered on 11/22/18 09:48; Admin Dose 10 MG; Start 11/22/18 at 09:30 Insulin Aspart (Novolog Insulin Pen) NOVOLOG *MILD* ALGORITHM WITH MEALS BEDTIME SC Last administered on 11/25/18 13:11; Admin Dose 3 UNIT; Start 11/22/18 at 11:30 Ferrous Sulfate (Ferrous Sulfate (Ec)) 325 mg DAILY PO Last administered on 11/25/18 09:21; Admin Dose 325 MG; Start 11/23/18 at 09:00 Miscellaneous Information 1 ea NOTE XX ; Start 11/23/18 at 13:30 Glucose (Glutose) 15 gm Q15M PRN PO DECREASED GLUCOSE; Start 11/23/18 at 13:30 Glucose (Glutose) 22.5 gm Q15M PRN PO DECREASED GLUCOSE; Start 11/23/18 at 13:30 Dextrose (D50w Syringe) 25 ml Q15M PRN IV DECREASED GLUCOSE; Start 11/23/18 at 13:30 Dextrose (D50w Syringe) 50 ml Q15M PRN IV DECREASED GLUCOSE; Start 11/23/18 at 13:30 Glucagon (Glucagen) 1 mg Q15M PRN IM DECREASED GLUCOSE; Start 11/23/18 at 13:30 Glucose (Glutose) 15 gm Q15M PRN BUCCAL DECREASED GLUCOSE; Start 11/23/18 at 13:30 Amoxicillin (Amoxicillin) 500 mg Q8 PO Last administered on 11/25/18 13:13; Admin Dose 500 MG; Start 11/24/18 at 14:30 Loperamide HCl (Imodium Cap) 2 mg QID PRN PO DIARRHEA; Start 11/24/18 at 15:00 Insulin Glargine (Lantus) 35 units DAILY@0800 SC Last administered on 11/25/18at 09:40; Admin Dose 35 UNITS; Start 11/25/18 at 09:30 Sodium Chloride 1,000 ml @ 50 mls/hr Q20H IV Last administered on 11/25/18at 11:00; Admin Dose 50 MLS/HR; Start 11/25/18 at 09:30; Stop 11/26/18 at 05:29 VTE Prophylaxis Risk score (from Ns)>0 risk: 4 SCD applied (from Ns): Yes Lines/Catheters IV Catheter Type: Nagel in Place: No Assessment/Plan Hospital Course Subjective Patient feeling much better,nagel removed Objective Physical exam General: Patient is laying in bed and answers questions appropriately Mentation: Patient is alert and oriented 4, Head: Normocephalic atraumatic Eyes: EOMI, pupils reactive to light Neck: Supple, nontender, midline Respiratory: Clear to auscultation bilaterally Cardiovascular: regular rate, no obvious murmurs Gastrointestinal: non-tender to palpation, bowel sounds heard. Neurological: Moves all extremities spontaneously Skin: No new skin lesions Assessment/Plan 1. Septic shock secondary to UTI, resolved - off pressor support and doing well - WBC trending downward - Urine cx showing no growth - 2. LUZ on ?CKD- - Cr resolved to WNL, but had a slight increase overnight - CT scan of abdomen/pelvis results noted -Monitor 3. Right hydronephrosis with ureter abnl - Urology on board and appreciate recommendations. Nagel removed, patient will need to do intermittent catheterization at home - Most likely contributing to LUZ 4. Diabetes Mellitus with hyperglycemia - A1c noted - SC insulin for now - ISS and accuchecks - DM education consultation placed 5. LE weakness - PT/OT consulted 6. Nausea with vomiting- resolved - most likely viral gastroenteritis - supportive treatment 7. Chronic diarrhea - resume home loperamide 8. iron deficiency anemia - IV iron and will start PO 9. Disposition -Teach patient how to do intermittent catheterization -cont p.o. antibiotic -Likely discharge tomorrow if renal function resolves, patient does not have established PCP to follow up with. YOJANA JOHNSTON Nov 25, 2018 14:24
[2018-11-25 19:35] VITALS: BP 123/79; PULSE 79; RESP 20
[2018-11-26] MEDS: SOD CHLORIDE 0.9% 1,000 ML IV SCH (00:35)
[2018-11-26 02:15] VITALS: BP 117/66; PULSE 77; RESP 20
[2018-11-26] MEDS: AMOXICILLIN 500 MG CAP PO SCH ×2 (06:06→13:59)
[2018-11-26 07:11] VITALS: BP 145/80; PULSE 78; RESP 18
--- NOTE | 2018-11-26 08:43 | CONS ---
Consult Date/Type/Reason Admit Date/Time Nov 20, 2018 at 11:56 Initial Consult Date 11/20/18 Type of Consultation: Urology Reason for Consultation Urinary retention and neurogenic bladder Requesting Provider: CÉSAR HYMAN MD Date/Time of Note DATE: 11/26/18 TIME: 08:39 Subjective Patient is doing self-catheterization and his is doing that for him as well Objective Vitals Vital Signs Date Temp Pulse Resp B/P (MAP) Pulse Ox O2 O2 Flow FiO2 Time Delivery Rate 11/26/18 98.3 78 18 145/80 100 Room Air 07:11 (101) Intake and Output 11/25/18 11/25/18 11/26/18 1515:00 23:00 07:00 IntakeIntake Total 510 ml 450 ml 1050 ml OutputOutput Total 600 ml 525 ml 400 ml BalanceBalance -90 ml -75 ml 650 ml Exam The abdomen is soft and the bladder is not distended Results/Medications Result Diagram: 11/26/18 0439 11/26/18 0439 Results 24 hrs Laboratory Tests Test 11/25/18 09:08 11/25/18 12:57 11/25/18 17:53 11/25/18 21:13 Bedside Glucose 305 H 231 H 205 200 Test 11/26/18 02:08 11/26/18 04:39 Bedside Glucose 178 White Blood Count 11.7 H Red Blood Count 2.87 L Hemoglobin 8.2 L Hematocrit 24.8 L Mean Corpuscular 86.4 Volume Mean Corpuscular 28.6 L Hemoglobin Mean Corpuscular 33.1 Hemoglobin Concent Red Cell 14.2 Distribution Width Platelet Count 498 H Mean Platelet Volume 9.5 Immature 1.600 H Granulocytes % Neutrophils % 73.4 Lymphocytes % 11.4 L Monocytes % 9.7 Eosinophils % 3.4 Basophils % 0.5 Nucleated Red Blood 0.0 Cells % Immature 0.190 H Granulocytes # Neutrophils # 8.6 H Lymphocytes # 1.3 Monocytes # 1.1 H Eosinophils # 0.4 Basophils # 0.1 Nucleated Red Blood 0.0 Cells # Sodium Level 137 Potassium Level 3.6 Chloride Level 105 Carbon Dioxide Level 24 Anion Gap 8 Blood Urea Nitrogen 15 Creatinine 1.14 Est Glomerular > 60 Filtrat Rate mL/min Glucose Level 164 # Calcium Level 8.6 Phosphorus Level 3.2 Magnesium Level 1.9 Home Meds Active Scripts [Insulin Glargine] 100 UNITS/ML SOLN No Conflict Check, 27 UNITS SC DAILY@0800 for 30 Days, #1 BOX 2 Refills Prov:YOJANA JOHNSTON J 11/24/18 Ferrous Sulfate* (Ferrous Sulfate*) 325 Mg Tabec, 325 MG PO DAILY for 30 Days, #30 TAB 1 Refill Prov:YOJANA JOHNSTON J 11/24/18 Amoxicillin* (Amoxicillin*) 500 Mg Cap, 500 MG PO Q8 for 11 Days, #33 CAP Prov:YOJANA JOHNSTON J 11/24/18 Reported Medications Insulin Regular, Human (Humulin R) 100 Unit/1 Ml Vial, 0 IJ TIDM A for SLIDING SCALE, VIAL INJECT 15 UNITS-QAM, 10 UNITS-NOON, 10 UNITS-QPM 11/20/18 Insulin Glargine* (Lantus*) 100 Unit/Ml Soln, 35 UNIT SC QHS, #1 VIAL 11/20/18 Loperamide Hcl* (Imodium*) 2 Mg Capsule, 2 MG PO BID PRN for DIARRHEA, CAP MAX 16 mg/day 11/20/18 Medications Current Medications IV Flush (NS 3 ml) 3 ml PER PROTOCOL IV ; Start 11/20/18 at 13:00 Ondansetron HCl (Zofran Inj) 4 mg Q6H PRN IV NAUSEA/VOMITING Last administered on 11/21/18at 09:06; Admin Dose 4 MG; Start 11/20/18 at 13:00 Acetaminophen (Tylenol Tab) 650 mg Q6H PRN PO .PAIN 1-3 OR TEMP Last administered on 11/24/18at 07:59; Admin Dose 650 MG; Start 11/20/18 at 13:00 Famotidine (Pepcid) 20 mg DAILY PO Last administered on 11/25/18at 09:21; Admin Dose 20 MG; Start 11/20/18 at 14:00 Heparin Sodium (Porcine) (Heparin (5000 Units/1ml)) 5,000 unit Q12 SC Last administered on 11/25/18at 21:26; Admin Dose 5,000 UNIT; Start 11/20/18 at 21:00 Miscellaneous Information 1 ea NOTE XX ; Start 11/20/18 at 18:00 Miscellaneous Information ([facility]) This patient khan... PRN PRN XX WOUND CARE; Start 11/20/18 at 18:30 Nystatin (Nystatin Oint) 1 applic TID TOP Last administered on 11/25/18at 21:28; Admin Dose 1 APPLIC; Start 11/21/18 at 09:00 Loperamide HCl (Imodium Cap) 2 mg QID PRN PO DIARRHEA Last administered on 11/22/18 09:48; Admin Dose 2 MG; Start 11/22/18 at 09:30 Lactobacillus Acidophilus/ Rhamnosus (Culturelle) 1 cap WITH MEALS PO Last administered on 11/25/18at 17:54; Admin Dose 1 CAP; Start 11/22/18 at 11:30 Dicyclomine HCl (Bentyl) 10 mg QID PRN PO cramps Last administered on 11/22/18 09:48; Admin Dose 10 MG; Start 11/22/18 at 09:30 Insulin Aspart (Novolog Insulin Pen) NOVOLOG *MILD* ALGORITHM WITH MEALS BE DTIME SC Last administered on 11/25/18 21:20; Admin Dose 1 UNIT; Start 11/22/18 at 11:30 Ferrous Sulfate (Ferrous Sulfate (Ec)) 325 mg DAILY PO Last administered on 11/25/18 09:21; Admin Dose 325 MG; Start 11/23/18 at 09:00 Miscellaneous Information 1 ea NOTE XX ; Start 11/23/18 at 13:30 Glucose (Glutose) 15 gm Q15M PRN PO DECREASED GLUCOSE; Start 11/23/18 at 13:30 Glucose (Glutose) 22.5 gm Q15M PRN PO DECREASED GLUCOSE; Start 11/23/18 at 13:30 Dextrose (D50w Syringe) 25 ml Q15M PRN IV DECREASED GLUCOSE; Start 11/23/18 at 13:30 Dextrose (D50w Syringe) 50 ml Q15M PRN IV DECREASED GLUCOSE; Start 11/23/18 at 13:30 Glucagon (Glucagen) 1 mg Q15M PRN IM DECREASED GLUCOSE; Start 11/23/18 at 13:30 Glucose (Glutose) 15 gm Q15M PRN BUCCAL DECREASED GLUCOSE; Start 11/23/18 at 13:30 Amoxicillin (Amoxicillin) 500 mg Q8 PO Last administered on 11/26/18at 06:06; Admin Dose 500 MG; Start 11/24/18 at 14:30 Loperamide HCl (Imodium Cap) 2 mg QID PRN PO DIARRHEA; Start 11/24/18 at 15:00 Insulin Glargine (Lantus) 35 units DAILY@0800 SC Last administered on 11/25/18at 09:40; Admin Dose 35 UNITS; Start 11/25/18 at 09:30 Assessment/Plan Hospital Course (Demo Recall) 48-year-old male with past medical history of diabetes mellitus for the past 12 years and cataracts presented to ED complaining of generalized weakness of lower extremities since November 19, 2018. He also had nausea and vomiting for the past 3 days. Patient states he has been experiencing vomiting with PO intake and denies eating outside food, sick contact, or recent travel. patient denies family members having the same symptoms. He has been taking his Lantus daily despite not having good PO intake and concerned about elevated sugars. Patient has been having urinary incontinence for over one year. He wets the bed at night and during the day he does have urinary frequency urgency and urgency incontinence. He has been using diapers for over one year. He has been expe riencing diarrhea for the past 6 years with any PO intake with relief when takes Loperamide. Patient was found with elevated glucose in ED in the 600s and UA was positive for UTI. He underwent a CT scan of the abdomen and pelvis and that showed a very distended urinary bladder with a hydronephrosis and tortuous ureters. The patient does have chronic urinary retention and overflow incontinence. That is why he has been wetting the bed at night for 1 year and also having urinary frequency urgency and urgency incontinence during the day. His prostate is not large and is not the cause for his retention. He most likely has neurogenic diabetic bladder causing his urinary retention and the hydronephrosis is secondary to the urinary retention. His creatinine has come down to 1.14. He is being taught as well as his how to do the in and out catheterization so they could continue doing that at home. They should do the catheterization every 6 hours and the bladder volume should not exceed 500 mL to avoid any backing of the urine for the kidney. FLORESITA GUPTA MD Nov 26, 2018 08:43
[2018-11-26] MEDS: INSULIN ASPART [NOVOLOG] 3 ML PEN SC SCH ×2 (09:02→13:16)
[2018-11-26] MEDS: FAMOTIDINE 20 MG TAB PO SCH (09:03)
[2018-11-26] MEDS: FERROUS SULFATE (EC) 325 MG TAB PO SCH (09:03)
[2018-11-26] MEDS: LACTOBACILLUS RHAMNOSUS CAP PO SCH ×2 (09:03→13:14)
[2018-11-26] MEDS: INSULIN GLARGINE [LANTus] (100 UNITS/ML) SYG SC SCH (09:08)
[2018-11-26] MEDS: HEPARIN 5,000 UNIT/1 ML VIAL SC SCH (09:09)
[2018-11-26] MEDS: NYSTATIN 15 GM OINT TOP SCH ×2 (10:28→13:18)
--- NOTE | 2018-11-26 11:10 | DS ---
Date/Time of Note Date/Time of Note DATE: 11/26/18 TIME: 11:10 Discharge Summary Admission/Discharge Info Admit Date/Time Nov 20, 2018 at 11:56 Discharge Date/Time Patient Condition: Stable Hospital Course Patient is a male with a past medical history significant for diabetes mellitus who originally presented to [facility] for generalized weakness with nausea and vomiting. Patient was found to have acute kidney injury, sepsis secondary to UTI as well as neurogenic bladder secondary to diabetes mellitus. Patient's sepsis secondary UTI has resolved, infectious disease has seen the patient and patient will be provided with the appropriate antibiotics at discharge. Patient's acute kidney injury resolved with fluids a nd after patient saw urology which originally consisted of treatment with a Ling catheter. Patient had no obstruction per urology and it was diagnosed as patient had a neurogenic bladder secondary to his diabetes mellitus. Patient was taught to do use intermittent self-catheterization to follow-up with a urologist in the outpatient setting. Of note due to patient's insurance we could not confirm intermittent catheterization supplies for full 30 days. A few days of catheterization supplies were given to the patient in house and patient was given directions and instructions to go to the [facility] at [facility] for further workup as well as further catheterization instruments. Patient understands fully and knows to go to the [facility] for a referral to a urologist for further management of his diabetic bladder. Patient feels well and during this time patient's diabetic medications were also adjusted and patient will be discharged with the appropriate diabetic regimen. At first it would appeared that the patient's Lantus had to be decreased however due to increased sugars patient was continued on his Lantus at home dose of 35 units daily. However the changes that patient does not require sliding scale insulin with meals at this time and patient understands fully. Patient's chronic diarrhea will be treated with loperamide and patient has been dealing with this for 6 years and likely unrelated to any other current issues. Patient will follow up with GI at the [facility]. Discharge diagnoses Septic shock secondary to UTI, resolved UTI, resolving Acute kidney injury, resolving Right hydronephrosis, resolving Diabetes mellitus Lower extremity weakness, resolved Nausea and vomiting, resolved Chronic diarrhea Iron deficiency anemia Home Meds Active Scripts [Insulin Glargine] 100 UNITS/ML SOLN No Conflict Check, 27 UNITS SC DAILY@0800 for 30 Days, #1 BOX 2 Refills Prov:YOJANA JOHNSTON 11/24/18 Ferrous Sulfate* (Ferrous Sulfate*) 325 Mg Tabec, 325 MG PO DAILY for 30 Days, #30 TAB 1 Refill Prov:YOJANA JOHNSTON 11/24/18 Amoxicillin* (Amoxicillin*) 500 Mg Cap, 500 MG PO Q8 for 11 Days, #33 CAP Prov:YOJANA JOHNSTON 11/24/18 Reported Medications Insulin Regular, Human (Humulin R) 100 Unit/1 Ml Vial, 0 IJ TIDM A for SLIDING SCALE, VIAL INJECT 15 UNITS-QAM, 10 UNITS-NOON, 10 UNITS-QPM 11/20/18 Insulin Glargine* (Lantus*) 100 Unit/Ml Soln, 35 UNIT SC QHS, #1 VIAL 11/20/18 Loperamide Hcl* (Imodium*) 2 Mg Capsule, 2 MG PO BID PRN for DIARRHEA, CAP MAX 16 mg/day 11/20/18 Primary Care Provider Care Physician No Primary Time spent on discharge: > 30 minutes Pending Labs Laboratory Tests Test 11/25/18 12:57 11/25/18 17:53 11/25/18 21:13 11/26/18 02:08 Bedside 231 205 200 178 Glucose mg/dL (70-220) mg/dL (70-220) mg/dL (70-220) mg/dL (70-220) Test 11/26/18 04:39 11/26/18 09:00 White Blood 11.7 Count 10^3/ul (4.8-10 .8) Red Blood 2.87 Count 10^6/ul (4.70-6 .10) Hemoglobin 8.2 g/dl (14.0-18.0 ) Hematocrit 24.8 % (42.0-52.0) Mean 86.4 Corpuscular fl (82.0-101.0) Volume Mean 28.6 Corpuscular pg (29.0-33.0) Hemoglobin Mean 33.1 Corpuscular g/dl (32.0-37.0 Hemoglobin Conc ) ent Red Cell 14.2 Distribution % (11.5-14.5) Width Platelet Count 498 10^3/UL (140-41 5) Mean Platelet 9.5 Volume fl (7.4-10.4) Immature 1.600 Granulocytes % % (0.001-0.429) Neutrophils % 73.4 % (39.0-77.0) Lymphocytes % 11.4 % (15.0-51.0) Monocytes % 9.7 % (0.0-11.0) Eosinophils % 3.4 % (0.0-7.0) Basophils % 0.5 % (0.0-2.0) Nucleated Red 0.0 Blood Cells % /100WBC (0.0-0. 0) Immature 0.190 Granulocytes # 10^3/ul (0.0-0. 031) Neutrophils # 8.6 10^3/ul (1.6-7. 5) Lymphocytes # 1.3 10^3/ul (0.8-2. 9) Monocytes # 1.1 10^3/ul (0.3-0. 9) Eosinophils # 0.4 10^3/ul (0.0-0. 5) Basophils # 0.1 10^3/ul (0.0-0. 1) Nucleated Red 0.0 Blood Cells # 10^3/ul (0.0-0. 0) Sodium Level 137 mmol/L (135-144 ) Potassium 3.6 Level mmol/L (3.5-5.1 ) Chloride Level 105 mmol/L (97-110) Carbon Dioxide 24 Level mmol/L (21-31) Anion Gap 8 (5-13) Blood Urea 15 mg/dl (7-20) Nitrogen Creatinine 1.14 mg/dl (0.61-1.2 4) Est Glomerular > 60 Filtrat mL/min (>60) Rate mL/min Glucose Level 164 mg/dl (70-220) Calcium Level 8.6 mg/dl (8.4-10.2 ) Phosphorus 3.2 Level mg/dl (2.5-4.9) Magnesium 1.9 Level mg/dl (1.7-2.5) Bedside 139 Glucose mg/dL (70-220) YOJANA JOHNSTON Nov 26, 2018 11:10
--- NOTE | 2018-11-26 11:16 | PDOCDIS ---
Discharge Instructions CONDITION [id number] Patient Condition: [id number] Stable FOLLOW UP/APPOINTMENTS Follow-up Plan 1. Please follow-up at the [facility] immediately for more catheterization supplies. He will need to go to the [facility] clinic within 3 days. He will also need a referral to a urologist for your neurogenic bladder as you are doing intermittent catheterization currently. You will also need a referral to a jewelry consultant for your chronic diarrhea. #2 please take medications as discussed. Continue your Lantus at 35 units in the morning however do not take any more regular insulin with meals. YOJANA JOHNSTON Nov 26, 2018 11:16
--- NOTE | 2018-11-26 16:18 | CONS ---
Assessment/Plan Assessment/Plan Hospital Course (Demo Recall) Patient is alert feels good he is being taught how to do intermittent catheterization self-catheterization, at bedside, no fevers overnight Antimicrobials: Amoxicillin PHYSICAL EXAMINATION: GENERAL: This is a well-developed, well-nourished, middle-aged man who is alert and in no distress. HEENT: Head is atraumatic, normocephalic. NECK: Supple. CHEST: Rise symmetrical. Breath sounds diminished to bases. HEART: S1, S2. ABDOMEN: Soft. Bowel tones are present. EXTREMITIES: Without cyanosis. Assessment: 1. Status post sepsis 2. Urinary tract infection, resolving 3. Bilateral hydronephrosis 4. Neurogenic bladder 5. Diabetes Plan: Remains stable, continue present care, antibiotics to complete 2 weeks Consultation Date/Type/Reason Admit Date/Time Nov 20, 2018 at 11:56 Initial Consult Date 11/20/18 Type of Consult id Requesting Provider: CÉSAR HYMAN MD Date/Time of Note DATE: 11/26/18 TIME: 16:17 Exam/Review of Systems Exam Vitals Vital Signs Date Temp Pulse Resp B/P (MAP) Pulse Ox O2 O2 Flow FiO2 Time Delivery Rate 11/26/18 98.3 78 18 145/80 100 Room Air 07:11 (101) Intake and Output 11/25/18 11/25/18 11/26/18 1515:00 23:00 07:00 IntakeIntake Total 510 ml 450 ml 1050 ml OutputOutput Total 600 ml 525 ml 400 ml BalanceBalance -90 ml -75 ml 650 ml Results Result Diagram: 11/26/18 0439 11/26/18 0439 Results 24hrs Laboratory Tests Test 11/25/18 17:53 11/25/18 21:13 11/26/18 02:08 11/26/18 04:39 Bedside Glucose 205 200 178 White Blood Count 11.7 H Red Blood Count 2.87 L Hemoglobin 8.2 L Hematocrit 24.8 L Mean Corpuscular 86.4 Volume Mean Corpuscular 28.6 L Hemoglobin Mean Corpuscular 33.1 Hemoglobin Concent Red Cell 14.2 Distribution Width Platelet Count 498 H Mean Platelet Volume 9.5 Immature 1.600 H Granulocytes % Neutrophils % 73.4 Lymphocytes % 11.4 L Monocytes % 9.7 Eosinophils % 3.4 Basophils % 0.5 Nucleated Red Blood 0.0 Cells % Immature 0.190 H Granulocytes # Neutrophils # 8.6 H Lymphocytes # 1.3 Monocytes # 1.1 H Eosinophils # 0.4 Basophils # 0.1 Nucleated Red Blood 0.0 Cells # Sodium Level 137 Potassium Level 3.6 Chloride Level 105 Carbon Dioxide Level 24 Anion Gap 8 Blood Urea Nitrogen 15 Creatinine 1.14 Est Glomerular > 60 Filtrat Rate mL/min Glucose Level 164 # Calcium Level 8.6 Phosphorus Level 3.2 Magnesium Level 1.9 Test 11/26/18 09:00 11/26/18 12:48 Bedside Glucose 139 181 Medications Medication Current Medications IV Flush (NS 3 ml) 3 ml PER PROTOCOL IV ; Start 11/20/18 at 13:00 Ondansetron HCl (Zofran Inj) 4 mg Q6H PRN IV NAUSEA/VOMITING Last administered on 11/21/18 09:06; Admin Dose 4 MG; Start 11/20/18 at 13:00 Acetaminophen (Tylenol Tab) 650 mg Q6H PRN PO .PAIN 1-3 OR TEMP Last administered on 11/24/18 07:59; Admin Dose 650 MG; Start 11/20/18 at 13:00 Famotidine (Pepcid) 20 mg DAILY PO Last administered on 11/26/18 09:03; Admin Dose 20 MG; Start 11/20/18 at 14:00 Heparin Sodium (Porcine) (Heparin (5000 Units/1ml)) 5,000 unit Q12 SC Last administered on 11/26/18 09:09; Admin Dose 5,000 UNIT; Start 11/20/18 at 21:00 Miscellaneous Information 1 ea NOTE XX ; Start 11/20/18 at 18:00 Miscellaneous Information [facility] This patient khan... PRN PRN XX WOUND CARE; Start 11/20/18 at 18:30 Nystatin (Nystatin Oint) 1 applic TID TOP Last administered on 11/26/18 13:18; Admin Dose 1 APPLIC; Start 11/21/18 at 09:00 Loperamide HCl (Imodium Cap) 2 mg QID PRN PO DIARRHEA Last administered on 11/22/18at 09:48; Admin Dose 2 MG; Start 11/22/18 at 09:30 Lactobacillus Acidophilus/ Rhamnosus (Culturelle) 1 cap WITH MEALS PO Last administered on 11/26/18 13:14; Admin Dose 1 CAP; Start 11/22/18 at 11:30 Dicyclomine HCl (Bentyl) 10 mg QID PRN PO cramps Last administered on 11/22/18at 09:48; Admin Dose 10 MG; Start 11/22/18 at 09:30 Insulin Aspart (Novolog Insulin Pen) NOVOLOG *MILD* ALGORITHM WITH MEALS BEDTIME SC Last administered on 11/26/18at 13:16; Admin Dose 2 UNIT; Start 11/22/18 at 11:30 Ferrous Sulfate (Ferrous Sulfate (Ec)) 325 mg DAILY PO Last administered on 11/26/18 09:03; Admin Dose 325 MG; Start 11/23/18 at 09:00 Miscellaneous Information 1 ea NOTE XX ; Start 11/23/18 at 13:30 Glucose (Glutose) 15 gm Q15M PRN PO DECREASED GLUCOSE; Start 11/23/18 at 13:30 Glucose (Glutose) 22.5 gm Q15M PRN PO DECREASED GLUCOSE; Start 11/23/18 at 13:30 Dextrose (D50w Syringe) 25 ml Q15M PRN IV DECREASED GLUCOSE; Start 11/23/18 at 13:30 Dextrose (D50w Syringe) 50 ml Q15M PRN IV DECREASED GLUCOSE; Start 11/23/18 at 13:30 Glucagon (Glucagen) 1 mg Q15M PRN IM DECREASED GLUCOSE; Start 11/23/18 at 13:30 Glucose (Glutose) 15 gm Q15M PRN BUCCAL DECREASED GLUCOSE; Start 11/23/18 at 13:30 Amoxicillin (Amoxicillin) 500 mg Q8 PO Last administered on 11/26/18at 13:59; Ad min Dose 500 MG; Start 11/24/18 at 14:30 Loperamide HCl (Imodium Cap) 2 mg QID PRN PO DIARRHEA; Start 11/24/18 at 15:00 Insulin Glargine (Lantus) 35 units DAILY@0800 SC Last administered on 11/26/18 09:08; Admin Dose 35 UNITS; Start 11/25/18 at 09:30 REINA TAFOYA NP Nov 26, 2018 16:18
== END 2018-11-26 16:10 | disposition home or self-care (01) | DRG 871 ==
LOC: E/R 07:51 → TEL 11:56 → ICU 20:51 → MS1 11-22 18:28
PROVIDERS: ADMIT Internal Medicine; ATTEND Internal Medicine
PROC: 02HV33Z Insertion of Infusion Device into Superior Vena Cava, Percutaneous Approach (ICD-10-PCS; principal; 2018-11-21)
DX: A41.9 Sepsis, unspecified organism (principal); R65.21 Severe sepsis with septic shock; N17.9 Acute kidney failure, unspecified; N13.30 Unspecified hydronephrosis; E87.1 Hypo-osmolality and hyponatremia; N39.0 Urinary tract infection, site not specified; E11.65 Type 2 diabetes mellitus with hyperglycemia; N31.8 Other neuromuscular dysfunction of bladder; E11.40 Type 2 diabetes mellitus with diabetic neuropathy, unspecified; K52.9 Noninfective gastroenteritis and colitis, unspecified; R11.2 Nausea with vomiting, unspecified; D50.9 Iron deficiency anemia, unspecified; R53.1 Weakness; N31.9 Neuromuscular dysfunction of bladder, unspecified; N39.490 Overflow incontinence
CPT/HCPCS: 36415; 36569; 70450; 71045; 74176; 76937; 80048; 80053; 80069; 81001; 82803; 82962; 83036; 83540; 83605; 83735; 84100; 84484; 85014; 85018; 85025; 87040; 87081; 87086; 93005; 96360; 96361; 97110; 97116; 97161; 97167; 97530; 97535; A4310; J0692; J0696; J1644; J1815; J2405; J2916; J3475; J3480; J7030; P9047